=== PATIENT | female | born 2000 ===

== ENCOUNTER 2024-04-27 15:06 | Emergency (ER) | payer OTHER, SELFPAY ==
--- NOTE | ~2024-04-27 | XR_ITS ---
CLINICAL HISTORY: chest pain recent flu 2 view chest x-ray. Comparison: None Findings: Heart size normal. No acute fracture. Impression: Lungs are clear. This document has been electronically signed by: Jose Ochoa MD on 04/27/2024 17:15:24
[2024-04-27 15:25] VITALS: BP 126/83; BP 134/94; PULSE 113; PULSE 122; RESP 18; TEMP 36.8; O2SAT 99; BMI 43.2
--- NOTE | 2024-04-27 15:29 | ECG_ITS ---
Test Reason : CHEST PAIN Blood Pressure : */* mmHG Vent. Rate : 104 BPM Atrial Rate : 104 BPM P-R Int : 158 ms QRS Dur : 72 ms QT Int : 348 ms P-R-T Axes : 61 94 16 degrees QTcB Int : 457 ms Sinus tachycardia Rightward axis Nonspecific T wave abnormality Abnormal ECG No previous ECGs available Referred By: Donna Tracy Electronically Signed By: Issac Flowers
--- NOTE | 2024-04-27 15:29 | ED.GENADULT ---
HPI - General Adult General Chief complaint: Headache Stated complaint: chest pain,headache from [place] Time Seen by Provider: 04/27/24 15:27 Source: patient, EMS, RN notes reviewed and old records reviewed Mode of arrival: EMS Limitations: no limitations History of Present Illness ED Provider: Rossana HPI narrative: Patient is a 23-year-old female presenting to the emergency department with complaint of chest pain while coughing since this morning. Per staff report to EMS, patient was restrained for two hours this morning and medicated with 25mg of diphenhydramine, 1mg of risperidone, 2mg ativan, and 5mg of zyprexa and has been persistently tachycardic since. Patient also complains of headache. Tested positive for flu B around but was retested today and was negative. Denies fevers. Denies abdominal pain, nausea, vomiting or diarrhea. MD complaint: chest pain Onset (ago): hour(s) Location: head and chest Pain Consistency: intermittent (with coughing) Treatments prior to arrival: none Related Data Allergies Allergy/AdvReac Type Severity Reaction Status Date / Time Unable to Assess Allergy Verified 04/27/24 15:28 Review of Systems Review of Systems: As per HPI Yes all other systems are reviewed and are negative PMFSH Social History Social History Advance Directives: No Advance Directives Information Provided: No Do you have a plan to hurt others: No Plan Physical Exam ED Vital Signs: Vital Signs - 24 hr 04/27/24 15:25 04/27/24 18:31 Temperature 98.3 F 98.4 F Pulse Rate 122 H 101 H Respiratory Rate 18 18 Blood Pressure 134/94 H 142/93 H Pulse Oximetry 99 99 Oxygen Delivery Method Room Air Room Air BMI result Body Mass Index 43.2 Vital signs have been reviewed and appear to be correct. Blood pressure normal. Heart rate tachycardic. Respiratory rate normal. Temperature normal. Oxygen saturation normal. Medications Administered Discontinued Medications Generic Name Dose Route Start Last Admin Trade Name Freq PRN Reason Stop Dose Admin Sodium Chloride 1,000 mls @ 999 mls/hr 04/27/24 15:45 04/27/24 15:47 Ns IV 04/27/24 16:45 999 mls/hr .Q1H1M SHARMAINE Administration Medical Decision Making Medical Decision Making [facility] Narrative: Patient is a 23-year-old female presenting to the emergency department with complaint of chest pain while coughing since this morning. On exam patient is awake, A+Ox3, tachycardic, VS otherwise WNL, afebrile, normal neurological exam without focal deficits, physical exam findings as above. Given reported symptoms and physical exam findings, initial differential includes but is not limited to cardiac arrhythmia, dehydration, pneumonia, viral illness. Labs notable for mild leukocytosis, no significant electrolyte abnormalities, negative troponin. Viral serology negative. X-ray chest notable for no evidence of pneumonia. My interpretation is in agreement with the radiologist's interpretation. EKG shows sinus tachycardia, rate 104. Heart rate improved with IV fluids in the ED. Feel patient is stable for discharge back to [facility]. Return precautions discussed. Advised Tylenol or ibuprofen for costochondritis. Patient verbalized understanding of plan. Differential Diagnosis Differential Diagnoses: The differential diagnosis associated with the presentation includes As per [facility] Admission/Observation Consideration of admission/observation: Escalation of care including admission/observation considered Patient would have been admitted to the hospital had their work up had any findings where hospital admission was appropriate and their clinical presentation warranted hospital admission. Lab Data [facility] Lab Attestation statement: I reviewed the patient's lab results. As per [facility] 04/27/24 15:45 04/27/24 15:45 Labs: Lab Results 04/27/24 04/27/24 Range/Units 15:41 15:45 WBC 11.4 H (4.8-10.8) X10*3/uL RBC 4.96 (4.20-5.50) X10*6/uL Hgb 12.8 (12.0-16.0) g/dl Hct 38.9 (37.0-47.0) % MCV 78.4 L (80.0-98.0) fL MCH 25.8 L (27.0-33.0) pg MCHC 32.9 (31.0-35.0) g/dl RDW 14.2 (11.0-16.0) % Plt Count 400 (160-400) X10*3/uL MPV 9.1 L (9.4-12.3) fL Immature Gran % (Auto) 0.5 H (0.0-0.4) % Neut % (Auto) 71.8 (45-73) % Lymph % (Auto) 20.3 (20-40) % [place] % (Auto) 7.0 (2-11) % Eos % (Auto) 0.2 (0-4) % Baso % (Auto) 0.2 (0-2) % Lymph # (Auto) 2.3 (1.2-4.9) X10*3/uL [place] # (Auto) 0.8 (0.1-1.2) X10*3/uL Eos # (Auto) 0.0 (0.0-0.4) X10*3/uL Baso # (Auto) 0.0 (0.0-0.2) X10*3/uL Abs Immat Gran (auto) 0.06 H (0.00-0.03) X10*3/uL Absolute Neuts (auto) 8.2 (2.0-8.3) x10*3/uL Absolute Nucleated RBC 0.000 (0.0-0.012) X10*3/uL Nucleated RBC % (auto) 0.0 (0.0-0.2) /100WBC Sodium 140 (135-145) mmol/L Potassium 3.6 (3.3-5.1) mmol/L Chloride 106 (96-108) mmol/L Carbon Dioxide 21 L (22-29) mmol/L Anion Gap 17 (12-20) BUN 9 (9-16) mg/dL Creatinine 0.71 (0.5-1.4) mg/dL Estim Creat Clear Calc 133.5 Estimated GFR > 60 Random Glucose 98 (60-115) mg/dL Calcium 9.6 (8.4-10.2) mg/dL Magnesium 2.5 (1.6-2.6) mg/dL Total Bilirubin 0.9 (0.0-1.0) mg/dL AST 34 H (5-31) U/L ALT 52 H (0-31) U/L Alkaline Phosphatase 88 (39-117) U/L Total Creatine Kinase 123 (26-140) U/L Troponin I High Sens < 2.7 (<3.5-17.0) ng/L Total Protein 8.3 H (6.5-8.0) g/dL Albumin 4.4 (3.5-5.0) g/dL TSH 1.22 (0.32-4.0) uIU/mL Beta HCG, Quant < 2 mIU/mL Influenza Type A (PCR) NEGATIVE (Negative) Influenza Type B (PCR) NEGATIVE (Negative) RSV RNA Qual (PCR) NEGATIVE (Negative) SARS-CoV-2 RNA (RT-PCR) NEGATIVE (Negative) Independent Interpretation I performed an independent interpretation of an: EKG (sinus tachycardia, rate 104bpm, normal [place] interval and QTc) and Plain X-Ray Interpretation: No evidence of pneumonia on cxr. Radiology Impression Discussion of test interpretation with radiology: I have reviewed the radiologist's reading. Radiologist Impression: 2 view chest x-ray. Comparison: None Findings: Heart size normal. No acute fracture. Impression: Lungs are clear. External Record Review External record reviewed: Inpatient record, Office record and Outpatient record Discharge Plan Discharge Clinical Impression: Tachycardia, Acute costochondritis Patient Disposition: [facility] Transfer Details: Return to [facility] Instructions: Costochondritis (ED), Noncardiac Chest Pain (ED), Tachycardia (ED) Additional Instructions: You were evaluated in the emergency department today for chest pain with coughing and tachycardia (fast heart rate). Your evaluation did not reveal medical conditions requiring emergent treatment at this time. Your chest pain is likely due to costochondritis from coughing. We recommend that you take 400 mg ibuprofen or 650 mg Tylenol every 6 hours as needed for pain. You were tested for flu, COVID, and RSV which were all negative. Your chest x-ray did not show evidence of pneumonia. Your heart rate improved with IV fluids. Follow-up with your primary care provider as needed. Return to the emergency department if you develop worsening chest pain, shortness of breath or difficulty breathing, fevers or any other new or concerning symptoms. Print Language: Bhutanese
--- NOTE | 2024-04-27 15:30 | PC.NURSE ---
pt arrives to [facility] on a section 21 - placed in her chart
[2024-04-27] MEDS: 0.9 % Sodium Chloride 1,000 ML 999 ML IV (15:47)
[2024-04-27 15:49] LABS: MANUAL DIFF FLAG NO
[2024-04-27 15:56] LABS: Basophils Percent Auto 0.2 % (0-2); Eosinophils Percent Auto 0.2 % (0-4); Hematocrit 38.9 % (37.0-47.0); Hemoglobin 12.8 g/dl (12.0-16.0); Imm Gran Abs Auto 0.06 X10*3/uL (0.00-0.03); Imm Gran Pct Auto 0.5 % (0.0-0.4); Lymphocytes Absolute Auto 2.3 X10*3/uL (1.2-4.9); Lymphocytes Percent Auto 20.3 % (20-40); Mean Corpuscular HGB Conc 32.9 g/dl (31.0-35.0); Mean Corpuscular Hemoglobin 25.8 pg (27.0-33.0); Mean Corpuscular Volume 78.4 fL (80.0-98.0); Mean Platelet Volume 9.1 fL (9.4-12.3); Monocytes Absolute Auto 0.8 X10*3/uL (0.1-1.2); Neutrophils Absolute Auto 8.2 x10*3/uL (2.0-8.3); Neutrophils Percent Auto 71.8 % (45-73); Platelet Count 400 X10*3/uL (160-400); Red Blood Count 4.96 X10*6/uL (4.20-5.50); Red Cell Distribution Width 14.2 % (11.0-16.0); White Blood Count 11.4 X10*3/uL (4.8-10.8)
--- OUTSIDE RECORDS SUMMARY | 2024-04-27 16:14 | XMS_ITS | Continuity of Care Document ---
Author Organization [facility] Address [address] [place] [id number]- Care Team Providers Care Card Feeder Name Role Phone Óscar CORREA, Cathy Primary Care Physician Encounter [facility] [id number] Date(s): 03/15/24 - 04/14/[address] [address] Attending Physician: Nabeel Zhao Encounter Type: Triage Allergies, Adverse Reactions, Alerts Substance Criticality Severity Reaction Reaction Severity Status melatonin Active Other Food Allergy apple sauce Active Immunizations Given and Recorded Vaccine Date Status Refusal Reason influenza virus vaccine, inactivated 02/07/24 Give n influenza virus vaccine, inactivated 04/12/19 Give n influenza virus vaccine, inactivated 12/05/18 Ze rded influenza virus vaccine, inactivated 12/26/17 Give n influenza virus vaccine, inactivated 11/27/15 Ze rded influenza virus vaccine, inactivated 12/18/14 Ze rded influenza virus vaccine, inactivated 12/12/13 Give n influenza virus vaccine, inactivated 12/19/12 Give n SARS-CoV-2 mRNA ([id number]) vax 05/04/21 Recorded SARS-CoV-2 (COVID-19) mRNA BNT-162b2 vac 07/10/20 Recorded SARS-CoV-2 (COVID-19) mRNA BNT-162b2 vac 06/20/20 Recorded Meningococcal Conjugate Vaccine 04/12/19 Given Meningococcal Conjugate Vaccine 12/18/14 Recorded Human Papillomavirus Vaccine 05/09/18 Given Human Papillomavirus Vaccine 11/27/15 Recorded Human Papillomavirus Vaccine 09/21/15 Recorded Hepatitis A Pediatric Vaccine 09/21/15 Recorded Hepatitis A Pediatric Vaccine 11/27/06 Recorded tetanus/diphtheria/pertussis, acel(Tdap) 12/18/14 Recorded Varicella Virus Vaccine 11/05/07 Given Varicella Virus Vaccine 09/22/03 Recorded Measles/Mumps/Rubella Virus Vaccine 11/05/07 Given Measles/Mumps/Rubella Virus Vaccine 09/22/03 Recor ded Poliovirus Vaccine, Inactivated 11/05/07 Given Poliovirus Vaccine, Inactivated 11/05/07 Recorded Poliovirus Vaccine, Inactivated 01/07/04 Recorded Poliovirus Vaccine, Inactivated 01/13/03 Recorded Poliovirus Vaccine, Inactivated 02 Recorded Diphth/Pertussis,Acel/Tetanus (oldterm) 11/05/07 G iven Typhoid Vaccine, Inactivated 11/27/06 Given Hepatitis A Vaccine (oldterm) 11/27/06 Given Influenza Virus Vaccine (oldterm) 12/18/04 Recorde d Influenza Virus Vaccine (oldterm) 03/31/04 Recorde d pneumococcal 7-valent vaccine 03/31/04 Recorded pneumococcal 7-valent vaccine 04/11/03 Recorded pneumococcal 7-valent vaccine 01/13/03 Recorded pneumococcal 7-valent vaccine 02 Recorded Haemophilus B Conj Vaccine (oldterm) 01/07/04 Ze rded Haemophilus B Conj Vaccine (oldterm) 04/11/03 Ze rded Haemophilus B Conj Vaccine (oldterm) 01/13/03 Ze rded Haemophilus B Conj Vaccine (oldterm) 02 Ze rded diphtheria/tetanus/pertussis, acel(DTaP) 01/07/04 Recorded diphtheria/tetanus/pertussis, acel(DTaP) 04/11/03 Recorded diphtheria/tetanus/pertussis, acel(DTaP) 01/13/03 Recorded diphtheria/tetanus/pertussis, acel(DTaP) 02 Recorded Hepatitis B Vaccine (old term) 04/11/03 Recorded Hepatitis B Vaccine (old term) 02 Recorded Hepatitis B Vaccine (old term) 02 Recorded hepatitis B pediatric vaccine 02 Recorded Medications benztropine 1 mg oral tablet 1 mg, 1, tablet, By Mouth, 2 times a day, TAKE 1 TABLET BY MOUTH TWICE A DAY Start Date: 01/13/21 Status: Ordered Repeat number: 1 hydrOXYzine pamoate 25 mg oral capsule 1 capsule = 25 mg, By Mouth, Daily at bedtime, PRN as needed for anxiety, TAKE 1 CAPSULE BY MOUTH EVERY DAY AT BEDTIME NEEDED Start Date: 01/13/21 Status: Ordered Repeat number: 1 Nizoral 2% topical shampoo 1 application, Topically, Once, as directed on package labeling, # 120 mL, 3 Refills, Soft Stop, 04/03/24 8:55:00 PM EST, Shampoo, [id number], Partial fill upon patient request if the prescription is for a schedule II opioid drug., 1 application Topically Once,Instr:as directed on package labeling, 152.5, cm, 02/07/24 11:49:00 EST, Height Start Date: 04/03/24 Status: Ordered Quantity: 120.0 Unit: mL Repeat number: 4 Selsun Blue Itchy Dry Scalp 1% topical shampoo 1 applicator, Topically, Every other day, # 330 mL, 1 Refills, Maintenance, 04/09/24 10:37:00 AM EST, [id number], Partial fill upon patient request if the prescription is for aschedule II opioid drug., 1 applicator Topically Every other day, 152.5, cm, 02/07/24 11:49:00 EST,Height Start Date: 04/09/24 Status: Ordered Quantity: 330.0 Unit: mL Repeat number: 2 sertraline 100 mg oral tablet 1 tablet = 100 mg, By Mouth, Daily in AM, TAKE 1 TABLET BY MOUTH EVERY MORNING Start Date: 01/13/21 Status: Ordered Repeat number: 1 Splint See Instructions, # 1 each, Maintenance, DX carpal tunnel S , at bedtime, 12/27/22 12:15:00 PM EDT,Supply, 152.5, cm, 12/27/22 11:37:00 EDT, Height, 77, kg, 01/13/21 13:40:00 EST, Dry Weight Start Date: 12/27/22 Status: Ordered Quantity: 1.0 Unit: each Repeat number: 1 traZODone 50 mg oral tablet 25 mg, 0.5, tablet, By Mouth, Daily at bedtime, PRN, TAKE 1/2 TABLET BY MOUTH AT BEDTIME NEEDED FOR INSOMNIA, Insomnia Start Date: 01/13/21 Status: Ordered Repeat number: 1 Vitamin D3 2000 intl units oral capsule 1 capsule = 50 mcg, By Mouth, Daily, TAKE 1 CAPSULE BY MOUTH EVERY DAY, # 90 capsule, 1 Refills, Maintenance, 01/13/24 5:31:00 PM EST, Capsule, [id number], Partial fill upon patient request if the prescription is for a schedule II opioid drug., 152.5, cm, 11/27/23 13:16:00 EDT, Height Start Date: 01/13/24 Status: Ordered Quantity: 90.0 Unit: capsule Repeat number: 2 Problem List Condition Confirmation Course Effective Dates Status Health St atus Informant Anxiety and depression w/psychotic features (psych f/u with OPERATIONS ASSISTANT) Confirmed Active History of Chronic headache & Concussion Confirmed Active History of suicidality (recurrent psych admissions) Confirmed Active MSQ contact center manager, Lindsay Hernandez, RN [phone] Confirmed Active Obesity due to excess calories Confirmed Active Gender Identity-Pt prefers male or neutral pronouns Confirmed Active Severe obesity Confirmed Active Social History Social History Type Response Smoking Status Never smoker entered on: 03/21/14 Sex Female Sex Representation Female (finding) Hospital Consult note * Event Display: Inpatient Consult Note, Non- Authored Date: Laboratory * Event Display: Non Lab Results Authored Date: Note * Event Display: General Cardiac Risk Stratification Authored Date: Patient Care team information Care Team Personnel Name: Bertha Dougherty RN Position: [facility] RN Member Role: Primary Care Nurse Name: Marisol Martinez RN Position: [facility] RN Supv Member Role: Primary Care Nurse Name: Mary Alegria RN Position: S RN Member Role: Primary Care Nurse Name: Astrid Rodriguez RN Position: S RN Member Role: Primary Care Nurse Name: Cathy Cantrell MD Position: S Physician - Primary Care Member Role: PCP Address: [address] [place] [address] Telecom: Name: Janel Novak RN Position: S RN Member Role: Primary Care Nurse Care Team Related Persons Name: DAPHNE RAGSDALE Name: DAISHA LLOYD Name: MERRICK LLOYD Name: JAMSHID CRUZ Insurance Providers Guarantor name: DAPHNE MARTINEZMANNY Health Plan Information #: 1 Payer: [facility] Member Number: NA Policy Number: NA Group Number: NA
--- OUTSIDE RECORDS SUMMARY | 2024-04-27 16:14 | XMS_ITS | Continuity of Care Document ---
Author Organization [facility] Address [address] [place] [address]- Care Team Providers Care Spinner Operator Name Role Phone Óscar CORREA, Cathy Primary Care [id number] Date(s): 02/07/24 - 04/14/[address] [address] Attending Physician: Sukhwinder Larry MD Admitting Physician: Sukhwinder Larry MD Encounter Type: Pre-OutPatient One Time Allergies, Adverse Reactions, Alerts Substance Criticality Severity [...] vaccine, inactivated 12/19/12 Give n SARS-CoV-2 mRNA (nitljjv-cbeu-gzhfi) vax 05/04/21 Recorded SARS-CoV-2 (COVID-19) mRNA BNT-162b2 [...] Soft Stop, 04/03/24 8:55:00 PM EST, Shampoo, [id number], Partial fill upon patient request if the [...] 1 Refills, Maintenance, 04/09/24 10:37:00 AM EST, [id number], Partial fill upon patient request if the [...] Maintenance, 01/13/24 5:31:00 PM EST, Capsule, [id number], Partial fill upon patient request if the prescription is for a schedule II opioid drug., 152.5, cm, 11/27/23 13:16:00 EDT, Height Start Date: 01/13/24 Status: Ordered Quantity: 90.0 Unit: capsule Repeat number: 2 Problem List Condition Confirmation Course Effective Dates Status Health St atus Informant Anxiety and depression w/psychotic features (psych f/u with WALL ATTENDANT) Confirmed Active History of Chronic headache & Concussion Confirmed Active History of suicidality (recurrent psych admissions) Confirmed Active MSQ tax compliance manager, Lindsay Hernandez RN [phone] Confirmed Active Obesity due to excess calories Confirmed Active Gender Identity-Pt prefers male or neutral pronouns Confirmed Active Severe obesity Confirmed Active Social History Social History Type Response Smoking Status Never smoker entered on: 03/21/14 Sex Female Sex Representation Female (finding) Patient Care team information Care Team Personnel Name: Bertha Dougherty RN Position: [facility] RN Member Role: Primary Care Nurse Name: Marisol Martinez RN Position: [facility] RN Supv Member Role: Primary Care Nurse Name: Mary Alegria RN Position: [facility] RN Member Role: Primary Care Nurse Name: Astrid Rodriguez RN Position: [facility] RN Member Role: Primary Care Nurse Name: Cathy Cantrell MD Position: [facility] Physician - Primary Care Member Role: PCP Address: [address] [place] [address] Telecom: Name: Janel Novak RN Position: S RN Member Role: Primary Care Nurse Care Team Related Persons Name: DAPHNE RAGSDALE Name: DAISHA LLOYD Name: MERRICK LLOYD Name: JAMSHID CRUZ Insurance Providers Guarantor name: DAPHNE [facility] [facility] Plan Information #: 1 Payer: [employer] Member Number: [id number] Policy Number: NA Group Number: [id number] Health Plan Information #: 2 Payer: [facility] Member Number: [id number] Policy Number: NA Group Number: NA
--- OUTSIDE RECORDS SUMMARY | 2024-04-27 16:14 | XMS_ITS | Encounter Summary ---
Author Organization [facility] Address [address] [place] [address] Care Team Providers Care Patch Machine Operator Name Role Phone Cathy Cantrell MD Primary Care Provider Reason for Visit * Reason Comments Itching 3rd visit this week for flu and hives; hives since last night via ems from home Encounter Details Date Type Department Care Team (Late st Contact Info) Description 04/16/2024 5:27 PM EST - 04/18/2024 10:30 AM EST Emergency [facility] Emergency [address] [place] [id number] Darshana Charles, DO [address] [place] [address] Crow Adair MD [address] [place] [address] Dylan Sullivan MD [address] [place] [phone] Simon Edwards MD [address] [place] [address] Schizoaffective disorder, unspecified type (CMS/HCC) (Primary Dx) Discharge Disposition: Psychiatric Hospital Social History Tobacco Use Types Packs/Day Years Used Date Smoking Tobacco: Never Assessed Comments Unknown Sex and Gender Information Value Date Recorded Sex Assigned at Female 04/16/2024 5:45 PM EST Legal Sex Female 11:46 AM EST Gender Identity Female 04/16/2024 5:45 PM EST Sexual Orientation Straight 04/16/2024 5: 45 PM EST documented as of this encounter Last Filed Vital Signs Vital Sign Reading Time Taken Comments Blood Pressure 114/64 04/18/2024 8:20 AM EST Pulse 85 04/18/2024 8:20 AM EST Temperature 36.8 ??C (98.2 ??F) 04/18/2024 8:20 AM ES T Respiratory Rate 16 04/18/2024 8:20 AM EST Oxygen Saturation 97% 04/18/2024 8:20 AM EST Inhaled Oxygen Concentration - - Weight 74.8 kg (165 lb) 04/16/2024 2:54 PM EST Height 152.4 cm (5') 04/16/2024 2:54 PM EST Body Mass Index 32.22 04/16/2024 2:54 PM EST documented in this encounter Functional Status * Are you deaf or do you have serious difficulty hearing? Answer Date of Assessment Author No 04/17/2024 11:39 PM Srinivas Morales RN * Are you blind or do you have serious difficulty seeing, even when wearing glasses? Answer Date of Assessment Author No 04/17/2024 11:39 PM Srinivas Morales RN * Do you have serious difficulty walking or climbing stairs? Answer Date of Assessment Author No 04/17/2024 11:39 PM Srinivas Morales RN * Do you have serious difficulty dressing or bathing? Answer Date of Assessment Author No 04/17/2024 11:39 PM Srinivas Morales RN * Because of a physical, mental, or emotional condition, do you have serious difficulty doing errandsalone such as visiting the doctor? Answer Date of Assessment Author No 04/17/2024 11:39 PM Srinivas Morales RN documented as of this encounter Mental Status * Because of a physical, mental, or emotional condition, do you have serious difficulty concentrating, remembering, or making decisions? (5 years old or older) Answer Entry Date Author No 04/17/2024 11:39 PM Srinivas Morales RN documented in this encounter Medications at Time of Discharge albuterol HFA (PROAIR HFA ; PROVENTIL HFA ; VENTOLIN HFA) 90 mcg/actuation inhalerIndicatio ns:Influenza Inhale 2 puffs by mouth every 4 (four) hours if needed for wheezing or shortness of breath. 1 each 04/16/2024 5 diphenhydrAMINE (BENADRYL) 25 mg tablet Take 1 tablet (25 mg total) by mouth every 6 (six) hours for 5 days. 20 each 04/16/2024 guaiFENesin (ROBITUSSIN) 100 mg/5 mL liquid Take 5-10 mL (100-200 mg total) by mouth every 4 (four) hours if needed for cough. 60 mL 04/16/2024 5 doxycycline (VIBRAMYCIN) 100 mg capsule Take 1 capsule (100 mg total) by mouth 2 (two) times a day for 5 days. Take with at least 8 ounces (large glass) of water, do not lie down for 30 minutes after. Administer 2 hours before or after multivitamins, antacids, or other products containing polyvalent cations (i.e., calcium, iron, magnesium, selenium, zinc). 9 each 04/16/2024 5 famotidine (PEPCID) 20 mg tablet Take 2 tablets (40 mg total) by mouth 1 (one) time each day for 4 days. 8 each 04/16/2024 5 predniSONE (DELTASONE) 20 mg tablet Take 2 tablets (40 mg total) by mouth 1 (one) time each day for 4 days. 8 each 04/16/2024 5 documented as of this encounter Discharge Disposition Disposition Code Departure Means Destination [facility] documented in this encounter Progress Notes * Simon Edwards MD - 04/18/2024 8:04 AM EST ED Course as of 04/18/24 0804 MonApr 16, [id number] This a 23-year-old female presented hospital today for evaluation of hives. Patient was endorsing suicidal ideation and a rapid medical evaluation pod. Therefore patient was brought back to alcohol for further evaluation. Patient was given 50 p.o. of Benadryl. Patient was also given. Will planto give patient a dose of prednisone here. Will also give patient a dose of Claritin here. Crisis counselor will be placed in for patient [TC] 2108 Crisis team has evaluate patient. Recommend involuntary bed search at this time. Patient be signed out to oncoming provider pending bed search [TC] Wed Apr 17, 2024 0938 Received on signout. Patient is awaiting placement. She continues to have hives. Will add moreprednisone. She was also diagnosed with influenza, and will treat with acetaminophen for symptomatic relief [LD] Elizabeth Apr 18, 2024 0802 I, Dr. Davey Edwards, have received signout for this patient from Dr Charles at 0700 hrs. The patient is currently pending transfer to [facility] 04/18/2024. [MG] ED Course User Index [LD] Dylan Sullivan MD [MG] Simon Edwards MD [TC] Darshana Hernandezny Melvin, DO Clinical Impressions as of 04/18/24 0804 Schizoaffective disorder, unspecified type (CMS/HCC) Send to Specialty Department 1. Schizoaffective disorder, unspecified type (CMS/HCC) Procedures Fatma A Dotafa * Penelope Lucas RN - 04/17/2024 6:24 PM EST Pt shared with this RN that she feels overwhelmed due to not knowing if her dog is OK and she may be evicted from her home. Pt requested to obtain phone number of her mother's hospital social worker from her phone - this Rn allowed and supervised. Pt wants Rika added to Emergency Contact list. Lung sounds clear, pt noted to be coughing sporadically. * Penelope Lucas RN - 04/17/2024 5:55 PM EST Med rec completed via [facility] pharmacy on [address] - provider notified. Pt reports medications that were picked up at this pharmacy on 04/16 were never taken - had an allergic reaction to antibiotics given in ED (azythromycin and Augmentin) - these antibiotics were added to pt allergy list. * Penelope Lucas RN - 04/17/2024 4:41 PM EST Gaby called and informed this RN they will accept pt for tomorrow (04/18) at 0900. * Penelope Lucas RN - 04/17/2024 4:17 PM EST Attempted to draw labs on this pt x2 without success. * Penelope Lucas RN - 04/17/2024 2:49 PM EST Pt c/o increased burning / itchiness around shoulder blades and upper back. A large rash noted across pt's back and down both arms. Pt's eyes noted to be swollen and reports a itchy throat. Provider notified and benadryl ordered. * Mega Stubbs RN - 04/17/2024 5:21 AM EST Attempted to call [facility] on [address] again to complete med rec but pharmacist stated that he is unable to do med rec as their system is updating and won't be done until around 7am. * Mega Stubbs RN - 04/17/2024 2:02 AM EST Attempted to call [facility] to complete med rec but no one answered. * Mega Stubbs RN - 04/16/2024 11:55 PM EST Security and PO at watch. * Mega Stubbs RN - 04/16/2024 11:54 PM EST Assumed care of this pt. Pt assuming position of comfort watching TV in no acute distress. Pt did ask for more benadryl as she is experiencing increase in itching and states my throat is getting tighter . Assessed airway and airway is patent. Respirations are even and unlabored. Provider notified refer to MAR. * Pablo Thomas RN - 04/16/2024 8:39 PM EST Crisis at bedside Pablo Thomas RN 04/16/242038 * Darshana Charles DO - 04/16/2024 7:36 PM EST ED Course as of 04/16/242109Apr 16, 20241947 This a 23-year-old female presented hospital today for evaluation of hives. Patient was endorsing suicidal ideation and a rapid medical evaluation pod. Therefore patient was brought back to alcohol for further evaluation. Patient was given 50 p.o. of Benadryl. Patient was also given. Will planto give patient a dose of prednisone here. Will also give patient a dose of Claritin here. Crisis counselor will be placed in for patient [TC] 2108 Crisis team has evaluate patient. Recommend involuntary bed search at this time. Patient be signed out to oncoming provider pending bed search [TC] ED Course User Index [TC] Darshana Charles DO Clinical Impressions as of 04/16/242109 Suicidal ideation Data Unavailable 1. Suicidal ideation Procedures Fatma A Bouhafa * Rayray Nicolas RN - 04/16/2024 6:30 PM EST While changing patient into proper safety attire to be in [facility], patient began to complain of dizziness, blurred vision, and stated that my heart is stopping . Patient lowered onto toilet and vitals were taken. BP 101/84, oxygen saturation of 100%, pulse of 80 BPM. ELIUD Cowart made aware. This RN helped patient perform deep breathing exercises for anxiety and patient began to feel better. Patient now denies dizziness, chest pain or difficulty breathing. * Rayray Nicolas RN - 04/16/2024 6:00 PM EST Patient endorsing SI statements and states she has no plan but has had some ideas to kill herself like overdosing on pills, jumping in front of traffic, and hanging herself. hooking machine operator and ELIUD Cowart made aware. Plan to bring patient over to [facility] to get seen by crisis team. * Saskia Ireland RN - 04/16/2024 2:57 PM EST Patient calls someone on the phone who asking for the hospital number to text to explain her anxiety and other issues patient is alert and oriented, refusing to answer questions, wont even tell this RN her birthday and just says I can't, I can't refusing to lift her sleeves to look at rash. Refusing to get off cell phone, unable to visualize rash or triage appropriately due to lack to participation from patient. I offered another nurse and patient states no ?? * Saskai Ireland RN - 04/16/2024 2:50 PM EST Recent pneumonia diagnosis, placed on antibiotic and back today for rash. Was seen for rash yesterday. Patient states rash is getting worse Patient with head in her lap, wont take her bonilla off, wont raise her head to look at this RN. Patient will not answer my questions and is on her cell phone. She states talk to my worker I told Leesa wanted to speak to her and she needed to raise her head and answer questions and patient will not. She will not let me assess the rash either. ? * Bela Vera RN - 04/16/2024 2:16 PM EST Seen here for flu earlier this week, given abx (azithromycin) and then developed hives/itching; came here for hives and stopped abx but continues to have worsening of hives so here again via ems Did not cooperate for ems to answer questions or to assess hives * ELIUD Reyez - 04/16/2024 1:58 PM EST Emergency Medicine Note Patient Name: Mick White Initial Evaluation: 04/16/2024 : 2000 Patient's PCP: Cathy Cantrell MD Emergency Physician: ELIUD Reyez History of Present Illness Chief Complaint: Chief Complaint Patient presents with ??? Itching 3rd visit this week for flu and hives; hives since last night via ems from home HPI: This is a 23-year-old female who comes in today with complaints of itchy hives from an antibiotic she was prescribed yesterday for pneumonia. She also has influenza. She came back to the ED yesterdayafter she started having an itchy rash. Her antibiotics were changed and she was also given prednisone and Benadryl. She comes back in today because she is still having the hives. Denies difficulty breathing or swallowing. ROS: GENERAL: No fever, no chills, no acute distress OPHTHALMOLOGY: No vision changes, no redness, or discharge ENT: No sore throat , no nosebleed CARDIOVASCULAR: No chest pain, no peripheral edema RESPIRATORY: No dyspnea, no sputum production, and no cough MUSCULOSKELETAL: No myalgias, no back pain, and no neck pain. GI: No abdominal pain, no nausea, no vomiting, no diarrhea. No black stool, bright red blood per rectum, or constipation. GENITOURINARY: No dysuria, no urgency, no frequency NEUROLOGY: No paresthesias, no weakness, No headache PSYCHIATRIC: No depression, no suicidality, or intent of self-harm DERMATOLOGY: +rash +pruritus IMMUNOLOGY: No immunocompromise HEMATOLOGY: No bleeding, no bruising Previous History No past medical history on file. No past surgical history on file. No family history on file. is allergic to apple, food allergy formula, ibuprofen, and melatonin. Current Facility-Administered Medications on File Prior to Encounter Medication Dose Route Frequency Provider Last Rate Last Admin ??? [COMPLETED] albuterol 2.5 mg /3 mL (0.083 %) nebulizer solution 2.5 mg 2.5 mg nebulization OnceErica Herve, PA 2.5 mg at 04/16/24 0252 ??? [COMPLETED] diphenhydrAMINE (BENADRYL) capsule 25 mg 25 mg oral Once Dianna Herve, PA 25 mg at 04/16/24 0511 ??? [COMPLETED] doxycycline (MONODOX) capsule 100 mg 100 mg oral Once Dianna Herve, PA 100 mg at 04/16/24 0253 ??? [COMPLETED] famotidine (PEPCID) tablet 40 mg 40 mg oral Once Dianna Herve, PA 40 mg at 04/16/24 0023 ??? [COMPLETED] guaiFENesin (ROBITUSSIN) 100 mg/5 mL liquid 100 mg 100 mg oral Once Dianna Herve, PA100 mg at 04/16/24 0408 ??? [COMPLETED] ipratropium-albuteroL (DUONEB) 0.5-2.5 mg/3 mL nebulizer solution 3 mL 3 mL nebulization Once Dianna Herve, PA 3 mL at 04/16/24 0253 ??? [COMPLETED] predniSONE (DELTASONE) tablet 60 mg 60 mg oral Once Dianna Herve, PA 60 mg at 04/16/24 0023 ??? [DISCONTINUED] famotidine (PF) (PEPCID) injection 40 mg 40 mg intravenous Once Dianna Edgar PA ??? [DISCONTINUED] methylPREDNISolone sodium succ (SOLU-Medrol) injection 125 mg 125 mg intravenousOnce ELIUD Magallanes Current Outpatient Medications on File Prior to Encounter Medication Sig Dispense Refill ??? albuterol HFA (PROAIR HFA ; PROVENTIL HFA ; VENTOLIN HFA) 90 mcg/actuation inhaler Inhale 2 puffs by mouth every 4 (four) hours if needed for wheezing or shortness of breath. 1 each 0 ??? diphenhydrAMINE (BENADRYL) 25 mg tablet Take 1 tablet (25 mg total) by mouth every 6 (six) hours for 5 days. 20 each 0 ??? doxycycline (VIBRAMYCIN) 100 mg capsule Take 1 capsule (100 mg total) by mouth 2 (two) times a day for 5 days. Take with at least 8 ounces (large glass) of water, do not lie down for 30 minutes after. Administer 2 hours before or after multivitamins, antacids, or other products containing polyvalent cations (i.e., calcium, iron, magnesium, selenium, zinc). 9 each 0 ??? famotidine (PEPCID) 20 mg tablet Take 2 tablets (40 mg total) by mouth 1 (one) time each day for 4 days. 8 each 0 ??? guaiFENesin (ROBITUSSIN) 100 mg/5 mL liquid Take 5-10 mL (100-200 mg total) by mouth every 4 (four) hours if needed for cough. 60 mL 0 ??? predniSONE (DELTASONE) 20 mg tablet Take 2 tablets (40 mg total) by mouth 1 (one) time each dayfor 4 days. 8 each 0 ??? [DISCONTINUED] amoxicillin-clavulanate (AUGMENTIN) 875-125 mg per tablet Take 1 tablet by mouthevery 12 (twelve) hours for 7 days. 14 tablet 0 ??? [DISCONTINUED] azithromycin (ZITHROMAX) 250 mg tablet Take 1 tablet (250 mg total) by mouth 1 (one) time each day for 4 days. 4 each 0 Physical Exam ED Triage Vitals [04/16/24 1454] Temp Heart Rate Resp BP 36.3 ??C (97.4 ??F) 101 20 136/88 SpO2 Temp Source Heart Rate Source Patient Position 97 % Oral -- -- BP Location FiO2 (%) -- -- General: Well-appearing, well nourished, in no acute distress HEENT: PERRL, EOMI, external ears and nose appear unremarkable, airway is patent Neck: Supple, full range of motion Chest: Clear to auscultation; no evidence of respiratory distress Circulatory: RRR, extremities well perfused Abdomen: Non-distended, Non-Tender Extremities: Normal ROM, No edema Skin: Warm and dry. Urticarial rash to the B forearms. Slight edema to the B upper eye lids. Neuro: Alert and oriented, no focal deficits Results Labs Reviewed - No data to display Abnormal Labs Reviewed - No data to display No orders to display I have discussed the incidental/abnormal imaging and/or lab abnormalities with the patient and haveinstructed them the need for further evaluation and workup with their primary care doctor. I have provided the patient with a paper copy of the abnormality. The laboratory results, imaging results and other diagnostic exam results were reviewed in the EMR. EKG Interpretation Critical Care Time None Medical Decision Making Medications diphenhydrAMINE (BENADRYL) capsule 50 mg (has no administration in time range) ED Course as of 04/23/24 1034 Tue Apr 16, 20241947 This a 23-year-old female presented hospital today for evaluation of hives. Patient was endorsing suicidal ideation and a rapid medical evaluation pod. Therefore [facility]. Patient was given 50 p.o. of Benadryl. Patient was also given. Will planto give patient a dose of prednisone here. Will also give patient a dose of Claritin here. Crisis counselor will be placed in for patient [TC] 2108 Crisis team has evaluate patient. Recommend involuntary bed search at this time. Patient be signed out to oncoming provider pending bed search [TC] Wed Apr 17, 2024 0938 Received on signout. Patient is awaiting placement. She continues to have hives. Will add moreprednisone. She was also diagnosed with influenza, and will treat with acetaminophen for symptomatic relief [LD] Elizabeth Apr 18, 2024 0802 I, Dr. Davey Edwards, have received signout for this patient from Dr Charles at 0700 hrs. The patient is currently pending transfer to [facility] today 04/18/2024. [MG] ED Course User Index [LD] Dylan Sullivan MD [MG] Simon Edwards MD [TC] Darshana Charles, DO Clinical Impressions as of 04/23/24 1034 Schizoaffective disorder, unspecified type (CMS/HCC) Differential to include allergic reaction to antibiotic, anaphylaxis, anxiety, pneumonia, influenza I explained to the patient that she is already currently taking all of the appropriate medications for this reaction. Her vital signs are stable, there is no work of breathing her lungs are clear. However, she stated that she was feeling slightly suicidal. She reports that she has had a lot of ongoing stress at home recently. She will be moved to [facility] for [facility] evaluation. Procedures Procedures Diagnosis No diagnosis found. Disposition Data Unavailable ED Prescriptions None Physician Attestation ELIUD Reyez 04/16/24 1754 ELIUD Reyez 04/23/24 1034 Cosigned by Darshana Charles DO at 04/23/2024 2:12 PM EST documented in this encounter Consult Notes * Dixon Loo - 04/17/2024 4:53 PM EST The patient is accepted by Dr. Ary Moses at [facility] for tomorrow, at 11AM. * Dixon Loo - 04/16/2024 9:28 PM ESTAssociated Order(s): IP CONSULT TO ATHLETIC DIRECTOR Images from the original note were not included. Behavioral Health Services - Crisis Assessment Important times Time of arrival: 1:58PM--04/16/2024 Time of referral: 7:48PM--04/16/2024 Time of readiness: 7:50PM--04/16/2024 Time assessment started: 8:30PM--04/16/2024 Time of disposition: 9:30PM--04/16/2024 Location: ED, Room- Consulted case with: BINDU Oneal Reason for Consultation / Presenting Problem: Mick White is being seen today for a consultive service at the request of Darshana Charles DO to assess risk and identify appropriate level of care. Mick is being seen today due to feeling slightly suicidal. With few ideas such as overdosing on pills, jumping in front of traffic, and hanging herself. She stated that she has lots of ongoing stress at home. She initially presents with itchy hives from an antibiotic she was prescribed with her visit here yesterday for pneumonia. The patient stated that she is being suicidal about a week but more today feeling overwhelmed by it. She shared that the cause is due to her mother company. She will be [facility], and she does not give her space, she is always on top of her head; asking questions and want to know every breath she takes. The patient shared that two years ago in November has suicidal ideation due to loneliness and went to [facility]. She reported that about a years and half ago she overdosed on cough medication and passed out and was brought to hospital and has a history of cutting during her school time but she has not cut herself for more than three years. History of Present Illness: Mick is a 23 y.o. female with Chief Complaint Patient presents with Itching 3rd visit this week for flu and hives; hives since last night via ems from home Social/Educational History: Guardian - if Yes, provide contact information: self Status: no State Agency Involvement: [facility], providing her with outreach services. Osman's Order: No Marital Status: Single Alternative Placement Details: N/A Living Situation for patient: The patient is currently lives with her mom and two pets; one dog anirudh cat. Household Members/Age: Unknown Friendships/Family/Social Peer Support/Relationships: None reported, beside [facility] outreach services. Highest level of education: GED/ High School Comments (Include Learning Needs): N/A Occupation: Unemployed Employment/Extracurricular Activities/Hobbies: Draw and listen to music. Limitations of Daily Activities: Not reported Strengths/Supports: The patient able to advocate for herself. Collaterals, contact information, and engagement level: Therapist: BOB Psychiatrist: Diandra ROJAS PCP: [facility] Provider Family: Mom Other: N/A Mental Status Speech: WNL Eye Contact: WNL Motor Activity: WNL Mood: Tired, Sad and stressed out. Affect: Appropriate Sleep: Poor Appetite: Poor Memory: WNL Attention / Concentration: WNL Behavior: Cooperative Appearance: approriate; with the hospital attire. Hallucinations: None Delusions: None Thought Content: WNL SI: Presence HI: Denied Thought Process: WNL Orientation Impairment: None Insight: WNL Judgment: WNL Impulse Control: WNL Substance Use History (Including family history): None was reported about the patient, Dad uses tobacco Utox Results: Negative Substance Use Treatment History: None reported. Mental Health Treatment History: Outpatient Mental Health Treatment: None reported Previous or Current Psychological Diagnosis: Schizoaffective disorder. Prior Psychiatric Hospitalizations/Residential Treatment Facilities: The patient reported being fewtimes in hospitals at [facility] and [facility] due to feeling suicidal, overdosed and cutting. Other Comments Regarding Mental Health Treatment History: The patient has a significant history of admission and treatment for the last few years. Mental Health Concerns in Family: N/A Trauma History: The patient shared that she was bullied during her school time from many of her classmates. Medications: Scheduled Meds: loratadine, 10 mg, oral, Daily Continuous Infusions: PRN Meds: N/A Risk Assessment: Self-Harm: Past and Current Suicidal Behavior: Current Homicidal Behavior: None Physical Assault: None Physical Aggression: None Property Damage: None Verbal Aggression: None Family history of suicide: None currently reported. Protective Factors: The patient has DMH, CHD and BHN, safe housing and mom's support. Risk Factors: History of SI, cutting, and overdose. Suicide Risk: Based on patient's history and current presentation, their level of risk for intentional lethal harm is considered Moderate to high. Interventions: Conducted Safety assessment, Motivational interviewing, risk assessment, active listening, empathetic listening, brief counseling, psychoeducation, support, and safety planning. Response to interventions: Patient was engaging to the best of his ability DSM-5TR Diagnosis: F25.9 Schizoaffective disorder, unspecified type (CMS/HCC) Plan: 23 years old white female presents initially with hives allergy from antibiotic that she is taking and suicidal with few plans. The patient is currently not safe to go back to the community. Based onthe above information, it is my clinical opinion that Mick would benefit from an inpatient psychiatric admission for safety and containment, mood stabilization, medication evaluation, diagnostic clarification, and participation in a therapeutic milieu. Upon discharge, she would benefit from a referral to outpatient providers for continued medication management, and to gain insight and psychoeducation into her mental health symptoms and develop adaptive coping skills for her depression and suicidal ideation Recommendations were discussed with requesting provider. It was a pleasure to assist Mick White here at [facility]. This report is written and finalized by: KIMBERLEY Underwood Behavioral Health Specialist [facility] (Tel): [phone] / : [phone] documented in this encounter Plan of Treatment Pending Results Name Type Priority Associated Diagnoses Date /Time POC , urine manually resulted Point of Care Testing STAT 04/18/2024 6:19 AM EST Scheduled Orders Name Type Priority Associated Diagnoses Orde r Schedule POC , urine manually resulted Point of Care Testing STAT Once for 1 Occurrences starting 04/18/2024 until 04/18/2024 documented as of this encounter Procedures Procedure Name Priority Date/Time Associated Diagnosis Comments DRUG ABUSE SCREEN 8A PANEL, URINE STAT 04/17/2024 1:18 PM EST BUPRENORPHINE SCREEN, URINE STAT 04/17/2024 1:18 PM EST METHADONE SCREEN, URINE STAT 04/17/2024 1:18 PM EST PHENCYCLIDINE, URINE STAT 04/17/2024 1:18 PM EST documented in this encounter Results * Methadone, urine (04/17/2024 1:18 PM EST) Methadone Screen, Urine Negative Negative LAB CHEMISTRY METHOD 04/17/2024 1:52 PM EST [facility] Comment: Assay cutoff 300 ng/mL Semi-quantitative assay for screening purposes only. Unconfirmed screening result should not be used for non-medical purposes. *ALTERNATE METHOD CONFIRMATION DONE UPON REQUEST ONLY* Urine Urine specimen obtained by clean catch procedure / Unknown Non-blood Collection / Unknown 04/17/2024 1:18 PM EST 04/17/2024 1:28 PM EST us Crow Adair MD LAB URINE ORDERABLES Final Resu lt Performing Organization Address [facility] Co de Phone Number [facility] [address] [place] [address], [place] [phone] * Phencyclidine, urine (04/17/2024 1:18 PM EST) PCP Scrn, Ur Negative Negative LAB CHEMISTRY METHOD 04/17/2024 1:52 PM EST [facility] Comment: Assay cutoff 25 ng/mL Semi-quantitative assay for screening purposes only. Unconfirmed screening result should not be used for non-medical purposes. *ALTERNATE METHOD CONFIRMATION DONE UPON REQUEST ONLY* Urine Urine specimen obtained by clean catch procedure / Unknown Non-blood Collection / Unknown 04/17/2024 1:18 PM EST 04/17/2024 1:28 PM EST us Crow Adair MD LAB URINE ORDERABLES Final Resu lt Performing Organization Address [facility] Co de Phone Number [facility] [address] [place] [address], [place] [phone] * Buprenorphine screen, urine (04/17/2024 1:18 PM EST) Buprenorphine Screen Urine Negative Negative LAB CHEMISTRY METHOD 04/17/2024 1:52 PM EST [facility] Urine Urine specimen obtained by clean catch procedure / Unknown Non-blood Collection / Unknown 04/17/2024 1:18 PM EST 04/17/2024 1:28 PM EST Narrative [facility] - 04/17/2024 1:52 PM EST Assay cutoff 5 ng/mL Semi-quantitative assay for screening purposes only. Unconfirmed screening result should not be used for non-medical purposes. *ALTERNATE METHOD CONFIRMATION DONE UPON REQUEST ONLY* us Crow Adair MD LAB URINE ORDERABLES Final Resu lt [facility] [address] [place] [address], * Drug abuse screen 8a panel, urine (04/17/2024 1:18 PM EST) Amphetamine Screen, Ur Negative Negative LAB CHEMISTRY METHOD 04/17/2024 1:52 PM EST [facility] Comment:Certain OTC medicati ons containing ephedrine, phenylephrine, pseudoephedrine and phenylpropanolamine can cause false positive results. Barbiturate Screen, Ur Negative Negative LAB CHEMISTRY METHOD 04/17/2024 1:52 PM EST [facility] Benzodiazepine Screen, Ur Negative Negative LAB CHEMISTRY METHOD 04/17/2024 1:52 PM EST [facility] Cocaine Screen, Ur Negative Negative LAB CHEMISTRY METHOD 04/17/2024 1:52 PM EST [facility] Opiate Screen, Ur Negative Negative LAB CHEMISTRY METHOD 04/17/2024 1:52 PM EST [facility] Cannabinoid (THC) Screen, Ur Negative Negative LAB CHEMISTRY METHOD 04/17/2024 1:52 PM EST [facility] Comment:Specimens from patie nts taking pantoprazole sodium (Protonix) have been shown to produce false positive results. Oxycodone Screen, Ur Negative Negative LAB CHEMISTRY METHOD 04/17/2024 1:52 PM EST [facility] Fentanyl, Ur Negative Negative LAB CHEMISTRY METHOD 04/17/2024 1:52 PM EST [facility] Urine Urine specimen obtained by clean catch procedure / Unknown Non-blood Collection / Unknown 04/17/2024 1:18 PM EST 04/17/2024 1:28 PM EST [facility] - 04/17/2024 1:52 PM EST Assay cutoffs: Amphetamines ? 1000 ng/mL Barbiturates ?200 ng/mL Benzodiazepines ?? 200 ng/mL Cocaine ? 300 ng/mL Fentanyl ?1 ng/mL Opiates ? 300 ng/mL Oxycodone ? 100 ng/mL THC ?50 ng/mL Semi-quantitative assay for screening purposes only. Unconfirmed screening result should not be used for non-medical purposes. *ALTERNATE METHOD CONFIRMATION DONE UPON REQUEST ONLY* us Crow Adair MD LAB URINE ORDERABLES Final Resu lt [facility] ([facility]) [facility] [address] [place] [address], documented in this encounter Visit Diagnoses Diagnosis Schizoaffective disorder, unspecified type (CMS/HCC)- Primary documented in this encounter Administered Medications Inactive Administered Medications - up to 3 most recent administrations Medication Order MAR Action Action Date Dose Rate Site acetaminophen (TYLENOL) tablet 650 mg 650 mg, oral, Once, On Mon04/17/24 at 0755, For 1 dose Given 04/17/2024 9:11 AM EST 650 mg diphenhydrAMINE (BENADRYL) capsule 50 mg 50 mg, oral, Once, On Mon04/16/24 at 1747, For 1 dose Given 04/16/2024 6:01 PM EST 50 mg diphenhydrAMINE (BENADRYL) capsule 50 mg 50 mg, oral, Once, On Mon04/17/24 at 0010, For 1 dose Given 04/17/2024 12:26 AM EST 50 mg diphenhydrAMINE (BENADRYL) capsule 50 mg 50 mg, oral, Once, On Mon04/17/24 at 1417, For 1 dose Given 04/17/2024 2:56 PM EST 50 mg hydrOXYzine pamoate (VISTARIL) capsule 50 mg 50 mg, oral, Once, On Mon04/17/24 at 2013, For 1 dose Given 04/17/2024 8:31 PM EST 50 mg loratadine (CLARITIN) tablet 10 mg 10 mg, oral, Daily, First dose on Mon04/16/24 at 1937 Given 04/16/2024 8:26 PM EST 10 mg loratadine (CLARITIN) tablet 10 mg 10 mg, oral, Once, On Mon04/18/24 at 0651, For 1 dose Given 04/18/2024 7:03 AM EST 10 mg loratadine (CLARITIN) tablet 20 mg 20 mg, oral, Once, On Mon04/17/24 at 0634, For 1 dose Given 04/17/2024 6:50 AM EST 20 mg predniSONE (DELTASONE) tablet 20 mg 20 mg, oral, Once, On Mon04/16/24 at 1937, For 1 dose Given 04/16/2024 8:26 PM EST 20 mg predniSONE (DELTASONE) tablet 40 mg 40 mg, oral, Daily, First dose on Mon04/17/24 at 0755 Given 04/17/2024 9:11 AM EST 40 mg predniSONE (DELTASONE) tablet 60 mg 60 mg, oral, Once, On Mon04/17/24 at 2013, For 1 dose Given 04/17/2024 8:31 PM EST 60 mg documented in this encounter Discontinued Medications Medication Sig Discontinue Reason Start Date End Da te Banophen 25 mg capsule Take 1 capsule (25 mg total) by mouth every 6 (six) hours if needed for itching (For 5days). Duplicate order 04/16/2024 04/17/2024 documented as of this encounter Historical Medications * This list may reflect changes made after this encounter. Banophen 25 mg capsule Take 1 capsule (25 mg total) by mouth every 6 (six) hours if needed for itching (For 5days). 04/16/2024 04/17/2024 added in this encounter Active and Recently Administered Medications Times are shown in EST. Scheduled Medication Order 04/16/2024 04/17/2024 04/18/2024 acetaminophen (TYLENOL) tablet 650 mg (COMPLETED) 650 mg, oral, Once, On Mon04/17/24 at 0755, For 1 dose 0911 (Given - Provider: Jazmin Cerrato, ROBBY) diphenhydrAMINE (BENADRYL) capsule 50 mg (COMPLETED) 50 mg, oral, Once, On Mon04/16/24 at 1747, For 1 dose 1801 (Given - Provider: Rayray Nicolas, ROBBY) diphenhydrAMINE (BENADRYL) capsule 50 mg (COMPLETED) 50 mg, oral, Once, On Mon04/17/24 at 0010, For 1 dose 0026 (Given - Provider: Mega Stubbs RN) diphenhydrAMINE (BENADRYL) capsule 50 mg (COMPLETED) 50 mg, oral, Once, On Mon04/17/24 at 1417, For 1 dose 1456 (Given - Provider: Penelope Lucas RN) hydrOXYzine pamoate (VISTARIL) capsule 50 mg (COMPLETED) 50 mg, oral, Once, On Mon04/17/24 at 2012, For 1 dose 2030 (Given - Provider: Srinivas Hill RN) loratadine (CLARITIN) tablet 10 mg (CANCELED) 10 mg, oral, Daily, First dose on Mon04/16/24 at 1937 202 (Given - Provider: Pablo Thomas RN) 0904 (Not Given - Provider: Jazmin Cerrato RN - Reason: Other - Comment: 20mg given 6:30am) loratadine (CLARITIN) tablet 10 mg (COMPLETED) 10 mg, oral, Once, On Mon04/18/24 at 0651, For 1 dose 0703 (Given - Provider: Srinivas Hlil RN) loratadine (CLARITIN) tablet 20 mg (COMPLETED) 20 mg, oral, Once, On Mon04/17/24 at 0634, For 1 dose 0650 (Given - Provider: Mega Stubbs RN) predniSONE (DELTASONE) tablet 20 mg (COMPLETED) 20 mg, oral, Once, On Mon04/16/24 at 1937, For 1 dose 2025 (Given - Provider: Pablo Thomas RN) predniSONE (DELTASONE) tablet 40 mg (CANCELED) 40 mg, oral, Daily, First dose on Mon04/17/24 at 0755 0911 (Given - Provider: Jazmin Cerrato RN) predniSONE (DELTASONE) tablet 60 mg (COMPLETED) 60 mg, oral, Once, On Mon04/17/24 at 2012, For 1 dose 2030 (Given - Provider: Srinivas Hill RN) documented in this encounter Orders Medications Ordered That Marcelino ht Not Have Been Administered Count Last Ordered Date First Ordered Date loratadine (CLARITIN) tablet 10 mg 1 2024 diphenhydrAMINE (BENADRYL) capsule 25 mg 1 04/16/2024 Consult Count Last Ordered Date First Orde red Date IP CONSULT TO ATHLETIC DIRECTOR 1 04/16/2024 documented in this encounter Additional Health Concerns Infection Onset Date Last Indicated Resolved Time Influenza Comment:Infection isolation completed 04/15/2024 04/15/2024 04/24/2024 1:[address] documented as of this encounter Care Teams Patch Machine Operator Relationship Specialty Start Date End Date Cathy Cantrell MD 11 [facility] PCP - General Internal Medicine 04/15/24 documented as of this encounter
--- OUTSIDE RECORDS SUMMARY | 2024-04-27 16:14 | XMS_ITS | Encounter Summary ---
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 Consultation / Presenting Problem: Mick White is being seen today for a consultive service at the request of Hasmukh Brooks MD to assess risk and identify appropriate level of care. Mick is a 23-year-old female, history of psychosis, presents for crisis evaluation. [facility] She states she is continuing to have auditory hallucinations, she is feeling vaguely suicidal. She called crisis for evaluation, they heard her shaking a pillbottle during the phone call, and they became concerned. EMS was called and patient was brought to the ED for evaluation. She does admit to taking 4 tabs of Robitussin and made some vague suicidal statements. She is not having any medical complaints at this time. The nurse reported she is very anxious and was hiding in the bathroom and would not come out. She reproted she was saying she is suicidal and has been shaking. Mick intimally would not talk, however, then began to talk. Mick reported my name is really Brayan . She stated there are 2 people take are behind me listening to what I say . She stated I dis not sleep last night cause of those two people . She stated I have to stop talking because they are listening and they don't want me to say anymore . Mick was seen by [facility] co-response on 04/23/24 and she was sent to the ER for containment. They reported she had taken 4 Robitussin tablets. Unclear as to why she took the pills. History of Present Illness: Mick is a 23 y.o. female with Chief Complaint Patient presents with Psychiatric Evaluation Pt coming from home d/c from [facility] this am. Per EMS pt called [facility] crisis line where pt was faintly talking then a pill bottle was heard shaking on the call and then pt hung up. Per EMS pt has referral placed for crisis and did admit to EMS that she took 4 tabs of robitussin as well as made SI statements as well auditory hallucinations but not feeling it now . Pt has hx of attempted overdose. Social/Educational History: Guardian - if Yes, provide contact information: self Temperance Status: N/A State Agency Involvement: None reported Osman's Order: N/A Marital Status: Single Alternative Placement Details: N/A Living Situation for patient: Relative/lives with her mother. Household Members/Age: Unknown. Friendships/Family/Social Peer Support/Relationships: Mick has providers who are involved Highest level of education: GED Comments (Include Learning Needs): None reported Occupation: Unemployed Employment/Extracurricular Activities/Hobbies: Unemployed Limitations of Daily Activities: None reported Strengths/Supports: Mick has providers who are advocating for her needs. Collaterals, contact information, and engagement level: Therapist: None reported Psychiatrist: BOB/Diandra Sigala [phone] PCP: Unknown Family: Father Yogesh White [phone] [facility] Recovery Auditor of Green team Doris Fernandez [phone] (please contact so they can co-ordinate after discharge). warp worker Charisma Matamoros [phone] Mental Status Speech: WNL Eye Contact: Avoidant Motor Activity: WNL Mood: Anxious and Depressed Affect: Flat Sleep: Poor Appetite: Poor Memory: Moderate Impairment Attention / Concentration: Mild Impairment Behavior: Cooperative, Guarded, and Paranoid Appearance: Hallucinations: Auditory and Visual Delusions: Paranoid Thought Content: Preoccupied SI: Denied/however, reported initially she was suicidal. HI: Denied Thought Process: Tangential Orientation Impairment: Place and Person Insight: Poor Judgment: Poor Impulse Control: Poor Substance Use History (Including family history): Mick denies any history of alcohol or drug use. Utox Results: BAL negative TOX negative Substance Use Treatment History: Mick denies any history of substance abuse treatment. Mental Health Treatment History: Outpatient Mental Health Treatment: [facility] providers. Previous or Current Psychological Diagnosis: Schizoaffective D/O Depressed Type Prior Psychiatric Hospitalizations/Residential Treatment Facilities: Mick is known to [facility]. Mick reported she overdosed in 2022 as a suicide attempt. She has a history of psychiatric admissions in the past. Her most recent was to [facility]. Other Comments Regarding Mental Health Treatment History: None reported. Mental Health Concerns in Family: Mother has mental illness. Trauma History: Prior records stated she has a history of being bullied. Medications: Scheduled Meds: sertraline, 50 mg, oral, Daily Continuous Infusions: PRN Meds: PRN medications: albuterol Risk Assessment: Self-Harm: None Suicidal Behavior: None reported/however did take 4 Robitussin intent is unclear. Homicidal Behavior: None Physical Assault: None Physical Aggression: None Property Damage: None Verbal Aggression: None Family history of suicide: Unknown Protective Factors: Has providers working with her Stable housing Risk Factors: Paranoid, anxiety, auditory and visual hallucinations, Unclear why she took 4 Robitussin pills. Suicide Risk: Based on patient's history and current presentation, their level of risk for intentional lethal harm is considered Moderate Interventions: Used brief crisis intervention Response to interventions: Mick was responsive. DSM-5TR Diagnosis: F25.1 Schizoaffective D/O, Depressive Type Plan: It is unclear as to why Mick took the pills, she is at moderate risk for harm to herself. She is at low risk for harm to others. Due to the level of decompensation, not sleeping or eating, Hiding inthe bathroom and experiencing auditory and visual hallucinations, she is at risk for unintentional harm to herself and others. She would benefit from inpatient level of care for safety, stabilizationand medication evaluation. She is on a section 12 involuntary. Recommendations were discussed with requesting provider. It was a pleasure to assist Mick White here at [facility]. This report is written and finalized by: Ngozi Hills MS Behavioral Health Specialist [facility] (Tel): [phone] / : [phone] documented in this encounter Plan of Treatment Pending Results Name Type Priority Associated Diagnoses Date /Time POC , urine manually resulted [as available by site] Point of Care Testing STAT 04/23/2024 11:58 PM EST Scheduled Orders Name Type Priority Associated Diagnoses Orde r Schedule POC , urine manually resulted [as available by site] Point of Care Testing STAT STAT for 1 Occurrences starting 04/23/2024 until 04/23/2024 documented as of this encounter Procedures Procedure Name Priority Date/Time Associated Diagnosis Comments RAPID [id number] SCREENING, MOLECULAR STAT 04/24/2024 8:58 AM EST DRUG ABUSE SCREEN 8A PANEL, URINE STAT 04/23/2024 11:49 PM EST BUPRENORPHINE SCREEN, URINE STAT 04/23/2024 11:49 PM EST METHADONE SCREEN, URINE STAT 04/23/2024 11:49 PM EST CBC WITH AUTO DIFFERENTIAL STAT 04/23/2024 11:49 PM EST PHENCYCLIDINE, URINE STAT 04/23/2024 11:49 PM EST CBC AND DIFFERENTIAL STAT 04/23/2024 11:49 PM EST ETHANOL STAT 04/23/2024 11:49 PM EST ACETAMINOPHEN LEVEL STAT 04/23/2024 1 1:49 PM EST SALICYLATE LEVEL STAT 04/23/2024 11:4 9 PM EST COMPREHENSIVE METABOLIC PANEL STAT 04/23/2024 11:49 PM EST documented in this encounter Results * Rapid [id number], molecular (04/24/2024 8:58 AM EST) [facility] SARS-COV-2 Screen Not Detected Not Detected METHOD [id number] 04/24/2024 10:15 AM EST [facility] Swab Both anterior nares / Unknown Non-blood Collection / Unknown 04/24/2024 8:58 AM EST 04/24/2024 9:47 AM EST Hasmukh Brooks MD LAB MICROBIOLOGY - GENERAL DELANO LARSEN Final Result Performing Organization Address City/[facility]/ZIP Co de Phone Number [facility] [address] [place] [address], [place] [phone] * Phencyclidine, urine (04/23/2024 11:49 PM EST) [facility] PCP Scrn, Ur Negative Negative LAB CHEMISTRY METHOD 04/24/2024 12:46 AM EST [facility] Comment: Assay cutoff 25 ng/mL Semi-quantitative assay for screening purposes only. Unconfirmed screening result should not be used for non-medical purposes. *ALTERNATE METHOD CONFIRMATION DONE UPON REQUEST ONLY* Urine Urine specimen obtained by clean catch procedure / Unknown Non-blood Collection / Unknown 04/23/2024 11:49 PM EST 04/24/2024 12:13 AM EST Jb Wilkerson MD LAB URINE ORDERABLES Audra l Result Performing Organization Address [facility]/ZIP Co de Phone Number [facility] [address] [place] [address], [place] [phone] * Methadone, urine (04/23/2024 11:49 PM EST) [facility] Methadone Screen, Urine Negative Negative LAB CHEMISTRY METHOD 04/24/2024 12:58 AM EST [facility] Comment: Assay cutoff 300 ng/mL Semi-quantitative assay for screening purposes only. Unconfirmed screening result should not be used for non-medical purposes. *ALTERNATE METHOD CONFIRMATION DONE UPON REQUEST ONLY* Urine Urine specimen obtained by clean catch procedure / Unknown Non-blood Collection / Unknown 04/23/2024 11:49 PM EST 04/24/2024 12:13 AM EST Jb Wilkerson MD LAB URINE ORDERABLES Audra l Result Performing Organization Address [facility] Co de Phone Number [facility] [address] [place] [address], * Buprenorphine screen, urine (04/23/2024 11:49 PM EST) [facility] Buprenorphine Screen Urine Negative Negative LAB CHEMISTRY METHOD 04/24/2024 12:46 AM EST [facility] Urine Urine specimen obtained by clean catch procedure / Unknown Non-blood Collection / Unknown 04/23/2024 11:49 PM EST 04/24/2024 12:13 AM EST Narrative [facility] - 04/24/2024 12:46 AM EST Assay cutoff 5 ng/mL Semi-quantitative assay for screening purposes only. Unconfirmed screening result should not be used for non-medical purposes. *ALTERNATE METHOD CONFIRMATION DONE UPON REQUEST ONLY* Jb Wilkerson MD LAB URINE ORDERABLES Audra l Result Performing Organization Address City/[facility]/ZIP Co de Phone Number [facility] [address] [place] [address], * Drug abuse screen 8a panel, urine (04/23/2024 11:49 PM EST) [facility] Amphetamine Screen, Ur Negative Negative LAB CHEMISTRY METHOD 04/24/2024 12:58 AM [facility] Comment:Certain OTC medicati ons containing ephedrine, phenylephrine, pseudoephedrine and phenylpropanolamine can cause false positive results. Barbiturate Screen, Ur Negative Negative LAB CHEMISTRY METHOD 04/24/2024 12:58 AM [facility] Benzodiazepine Screen, Ur Negative Negative LAB CHEMISTRY METHOD 04/24/2024 12:58 AM [facility] Cocaine Screen, Ur Negative Negative LAB CHEMISTRY METHOD 04/24/2024 12:58 AM [facility] Opiate Screen, Ur Negative Negative LAB CHEMISTRY METHOD 04/24/2024 12:58 AM [facility] Cannabinoid (THC) Screen, Ur Negative Negative LAB CHEMISTRY METHOD 04/24/2024 12:58 AM [facility] Comment:Specimens from patie nts taking pantoprazole sodium (Protonix) have been shown to produce false positive results. Oxycodone Screen, Ur Negative Negative LAB CHEMISTRY METHOD 04/24/2024 12:58 AM [facility] Fentanyl, Ur Negative Negative LAB CHEMISTRY METHOD 04/24/2024 12:58 AM [facility] Urine Urine specimen obtained by clean catch procedure / Unknown Non-blood Collection / Unknown 04/23/2024 11:49 PM EST 04/24/2024 12:13 AM [facility] - 04/24/2024 12:58 AM EST Assay cutoffs: Amphetamines ? 1000 ng/mL Barbiturates ?200 ng/mL Benzodiazepines ?? 200 ng/mL Cocaine ? 300 ng/mL Fentanyl ?1 ng/mL Opiates ? 300 ng/mL Oxycodone ? 100 ng/mL THC ?50 ng/mL Semi-quantitative assay for screening purposes only. Unconfirmed screening result should not be used for non-medical purposes. *ALTERNATE METHOD CONFIRMATION DONE UPON REQUEST ONLY* Jb Wilkerson MD LAB URINE ORDERABLES Audra don Result [facility] [address] [place] [address], * (ABNORMAL) CBC auto differential (04/23/2024 11:49 PM EST) [facility] WBC 10.7 4.8 - 10.8 K/mcL LAB HEMETOLOGY METHOD 04/24/2024 12:20 AM [facility] RBC 4.60 3.80 - 4.80 M/mcL LAB HEMETOLOGY METHOD 04/24/2024 12:20 AM [facility] Hemoglobin 11.7 11.5 - 16.0 g/dL LAB HEMETOLOGY METHOD 04/24/2024 12:20 AM [facility] Hematocrit 37.3 35.0 - 47.0 % LAB HEMETOLOGY METHOD 04/24/2024 12:20 AM [facility] MCV 81.8 79.0 - 98.0 FL LAB HEMETOLOGY METHOD 04/24/2024 12:20 AM [facility] MCH 25.7(L) 27.0 - 32.0 pcg LAB HEMETOLOGY METHOD 04/24/2024 12:20 AM [facility] MCHC 31.4(L) 32.0 - 37.0 g/dL LAB HEMETOLOGY METHOD 04/24/2024 12:20 AM [facility] RDW 13.9 11.0 - 15.0 % LAB HEMETOLOGY METHOD 04/24/2024 12:20 AM [facility] Platelets 500(H) 130 - 400 K/mcL LAB HEMETOLOGY METHOD 04/24/2024 12:20 AM [facility] MPV 8.8 7.0 - 11.0 FL LAB HEMETOLOGY METHOD 04/24/2024 12:20 AM [facility] NRBC 0.0 <1.0 % LAB HEMETOLOGY METHOD 04/24/2024 12:20 AM [facility] NRBC Absolute 0.00 <0.10 K/mcL LAB HEMETOLOGY METHOD 04/24/2024 12:20 AM [facility] Neutrophils Relative 63.7 % LAB HEMETOLOGY METHOD 04/24/2024 12:20 AM [facility] Lymphocytes Relative 25.4 % LAB HEMETOLOGY METHOD 04/24/2024 12:20 AM [facility] Monocytes Relative 9.5 % LAB HEMETOLOGY METHOD 04/24/2024 12:20 AM [facility] Eosinophils Relative 0.0 % LAB HEMETOLOGY METHOD 04/24/2024 12:20 AM [facility] Basophils Relative 0.1 % LAB HEMETOLOGY METHOD 04/24/2024 12:20 AM [facility] Immature Granulocytes Relative 1.3 % LAB HEMETOLOGY METHOD 04/24/2024 12:20 AM [facility] Neutrophils Absolute 6.80 1.50 - 7.00 K/mcL LAB HEMETOLOGY METHOD 04/24/2024 12:20 AM [facility] Lymphocytes Absolute 2.72 1.00 - 5.00 K/mcL LAB HEMETOLOGY METHOD 04/24/2024 12:20 AM [facility] Monocytes Absolute 1.02(H) 0.20 - 1.00 K/mcL LAB HEMETOLOGY METHOD 04/24/2024 12:20 AM [facility] Eosinophils Absolute 0.00 0.00 - 0.50 K/mcL LAB HEMETOLOGY METHOD 04/24/2024 12:20 AM EST [facility] Basophils Absolute 0.01 0.00 - 0.20 K/[facility] LAB HEMETOLOGY METHOD 04/24/2024 12:20 AM EST [facility] Immature Granulocytes Absolute 0.14(H) 0.00 - 0.03 K/[facility] LAB HEMETOLOGY METHOD 04/24/2024 12:20 AM EST [facility] Blood Venous blood specimen / Unknown Venipuncture / Unknown 04/23/2024 11:49 PM EST 04/24/2024 12:13 AM EST Jb Wilkerson MD LAB BLOOD ORDERABLES Audra l Result Performing Organization Address City/[facility]/ZIP Co de Phone Number [facility] [address] [place] [address], [place] [phone] * Ethanol level (Alcohol level) (04/23/2024 11:49 PM EST) Ethanol Level <3 0 - 10 mg/dL LAB CHEMISTRY METHOD 04/24/2024 12:38 AM EST [facility] Blood Venous blood specimen / Unknown Venipuncture / Unknown 04/23/2024 11:49 PM EST 04/24/2024 12:13 AM EST Jb Wilkerson MD LAB BLOOD ORDERABLES Audra l Result [facility] [address] [place] [address], [place] [phone] * (ABNORMAL) Salicylate level (04/23/2024 11:49 PM EST) Salicylate Level <1.7(L) 2.0 - 29.0 mg/dL LAB CHEMISTRY METHOD 04/24/2024 12:38 AM EST [facility] Blood Venous blood specimen / Unknown Venipuncture / Unknown 04/23/2024 11:49 PM EST 04/24/2024 12:13 AM EST Jb Wilkerson MD LAB BLOOD ORDERABLES Audra l Result Performing Organization Address [facility]/ZIP Co de Phone Number [facility] [address] [place] [address], [place] [phone] * (ABNORMAL) Acetaminophen level (04/23/2024 11:49 PM EST) Acetaminophen Level <2.0(L) 10.0 - 30.0 mcg/mL LAB CHEMISTRY METHOD 04/24/2024 12:40 AM [facility] Blood Venous blood specimen / Unknown Venipuncture / Unknown 04/23/2024 11:49 PM EST 04/24/2024 12:13 AM EST Jb Wilkerson MD LAB BLOOD ORDERABLES Audra l Result Performing Organization Address [facility]/ZIP Co de Phone Number [facility] [address] [place] [address], [place] [phone] * Comprehensive metabolic panel (CMP) (04/23/2024 11:49 PM EST) Sodium 135 133 - 145 mmol/L LAB CHEMISTRY METHOD 04/24/2024 12:38 AM [facility] Potassium 4.3 3.5 - 5.5 mmol/L LAB CHEMISTRY METHOD 04/24/2024 12:38 AM [facility] Chloride 106 96 - 110 mmol/L LAB CHEMISTRY METHOD 04/24/2024 12:38 AM [facility] CO2 25 21 - 32 mmol/L LAB CHEMISTRY METHOD 04/24/2024 12:38 AM [facility] Anion Gap 4 3 - 11 LAB CHEMISTRY METHOD 04/24/2024 12:38 AM [facility] Glucose 84 70 - 100 mg/dL LAB CHEMISTRY METHOD 04/24/2024 12:38 AM [facility] BUN 15 5 - 25 mg/dL LAB CHEMISTRY METHOD 04/24/2024 12:38 AM [facility] Creatinine 0.73 0.50 - 1.10 mg/dL LAB CHEMISTRY METHOD 04/24/2024 12:38 AM [facility] eGFR 120 >=60 mL/min/1. 73m2 LAB CHEMISTRY METHOD 04/24/2024 12:38 AM [facility] Comment:Calculation based on the??Chronic Kidney Disease Epidemiology Collaboration (CKD-EPI) equation refit??without adjustment for race. BUN/Creatinine Ratio 20.5 LAB CHEMISTRY METHOD 04/24/2024 12:38 AM [facility] Calcium 9.1 8.5 - 10.5 mg/dL LAB CHEMISTRY METHOD 04/24/2024 12:38 AM [facility] AST (SGOT) 19 10 - 42 unit/L LAB CHEMISTRY METHOD 04/24/2024 12:38 AM [facility] ALT (SGPT) 35 10 - 60 unit/L LAB CHEMISTRY METHOD 04/24/2024 12:38 AM [facility] Alkaline Phosphatase 86 42 - 121 unit/L LAB CHEMISTRY METHOD 04/24/2024 12:38 AM [facility] Total Protein 7.4 6.0 - 8.0 g/dL LAB CHEMISTRY METHOD 04/24/2024 12:38 AM [facility] Albumin 4.0 3.2 - 5.0 g/dL LAB CHEMISTRY METHOD 04/24/2024 12:38 AM [facility] Total Bilirubin 0.4 0.0 - 1.4 mg/dL LAB CHEMISTRY METHOD 04/24/2024 12:38 AM [facility] Blood Venous blood specimen / Unknown Venipuncture / Unknown 04/23/2024 11:49 PM EST 04/24/2024 12:13 AM EST us Jb Wilkerson MD LAB BLOOD ORDERABLES Audra don Result [facility] [address] [place] [address], [place] [phone] documented in this encounter Visit Diagnoses Diagnosis Schizoaffective disorder, depressive type (CMS/HCC)- Primary Schizoaffective disorder, unspecified condition documented in this encounter Administered Medications Inactive Administered Medications - up to 3 most recent administrations Medication Order MAR Action Action Date Dose Rate Site LORazepam (ATIVAN) tablet 1 mg 1 mg, oral, Once, On Mon04/24/24 at 0504, For 1 dose Given 04/24/2024 5:20 AM EST 1 mg LORazepam (ATIVAN) tablet 2 mg 2 mg, oral, Once, On Mon04/25/24 at 0757, For 1 dose Given 04/25/2024 8:45 AM EST 2 mg OLANZapine (ZyPREXA) tablet 5 mg 5 mg, oral, 2 times daily PRN, agitation, Starting on Mon04/24/24 at 1825 Given 04/25/2024 3:11 AM EST 5 mg Given 04/24/2024 6:41 PM EST 5 mg sertraline (ZOLOFT) tablet 50 mg 50 mg, oral, Daily, First dose on Mon04/24/24 at 0900 Given 04/25/2024 8:45 AM EST 50 mg Given 04/24/2024 9:00 AM EST 50 mg documented in this encounter Historical Medications * This list may reflect changes made after this encounter. hydrOXYzine pamoate (VISTARIL) 50 mg capsule Take 1 capsule (50 mg total) by mouth 4 (four) times a day if needed for itching. sertraline (ZOLOFT) 50 mg tablet Take 1 tablet (50 mg total) by mouth 1 (one) time each day. added in this encounter Active and Recently Administered Medications Times are shown in EST. Scheduled Medication Order 04/23/2024 04/24/2024 04/25/2024 LORazepam (ATIVAN) tablet 1 mg (COMPLETED) 1 mg, oral, Once, On Mon04/24/24 at 0504, For 1 dose 0520 (Given - Provider: Abby Suero, ROBBY) LORazepam (ATIVAN) tablet 2 mg (COMPLETED) 2 mg, oral, Once, On Elizabeth 04/25/24 at 0757, For 1 dose 0845 (Given - Provid er: Justine Martínez RN) sertraline (ZOLOFT) tablet 50 mg 50 mg, oral, Daily, First dose on Mon04/24/24 at 0900 0900 (Given - Provider: Andree Wade) 0845 (Given - Provider: Justine Martínez RN) PRN Medication Order 04/23/2024 04/24/2024 04/25/2024 albuterol 2.5 mg /3 mL (0.083 %) nebulizer solution 2.5 mg 2.5 mg, nebulization, Every 8 hours PRN, wheezing, Starting on Mon04/24/24 at 0818 OLANZapine (ZyPREXA) tablet 5 mg 5 mg, oral, 2 times daily PRN, agitation, Starting on Mon04/24/24 at 1825 1841 (Given - Provider: Bertha Perkins, ROBBY) 0311 (Given - Provider: Natasha Reyes RN) documented in this encounter Orders Medications Ordered That Marcelino ht Not Have Been Administered Count Last Ordered Date First Ordered Date albuterol 2.5 mg /3 mL (0.08 3 %) nebulizer solution 2.5 mg 1 04/24/2024 famotidine (PEPCID) tablet 40 mg 1 04/24/19 hydrOXYzine pamoate (VISTARI L) capsule 50 mg 1 04/24/2024 Consult Count Last Ordered Date First Orde red Date IP CONSULT TO TRANSIT DEPARTMENT CLERK 1 04/24/2024 documented in this encounter Additional Health Concerns Infection Onset Date Last Indicated Resolved Time Influenza Comment:Infection isolation completed 04/15/2024 04/15/2024 04/24/2024 1:[address] documented as of this encounter Care Teams Logistics Clerk Relationship Specialty Start Date End Date Cathy Cantrell MD [address] [place] PCP - General Internal Medicine 04/15/24 documented as of this encounter
--- OUTSIDE RECORDS SUMMARY | 2024-04-27 16:14 | XMS_ITS | Encounter Summary ---
Author Organization [facility] Address [address] [place] [address] Care Team Providers Care Dynamometer Tuner Name Role Phone Cathy Cantrell MD Primary Care Provider [phone] Encounter Details Date Type Department Care Team (Late st Contact Info) Description 04/22/2024 Community Care Management [place] [facility] [address] [place] [address] Kisha Blanchard Social History Tobacco Use Types Packs/Day Years [...] care for your loved ones. For example, children's choir director or elderly care for an older adult? [...] PM EST documented as of this encounter Functional Status * Are you [...] Srinivas Morales RN documented in this encounter Progress Notes * Kisha Blanchard - 04/22/2024 11:06 AM EST Outreach Pt on: 04/15/2024 Reason for Encounter : SDOH Screening Outcome : Screening Complete Follow up Plan: Pt is working ongoing with a CM from [facility] . No f/up needed from [facility]. documented in this encounter Plan of Treatment Not on file documented as of this encounter Visit Diagnoses Not on filedocumented in this encounter Additional Health Concerns Infection Onset Date Last Indicated Resolved Time Influenza Comment:Infection isolation completed 04/15/2024 04/15/2024 04/24/2024 1:[address] documented as of this encounter Care Teams Dynamometer Tuner Relationship Specialty Start Date End Date Cathy Cantrell MD [address] [place] PCP - General Internal Medicine 04/15/24 documented as of this encounter
--- OUTSIDE RECORDS SUMMARY | 2024-04-27 16:14 | XMS_ITS ---
Author Organization [facility] Address [address] [place] [address] Phone Care Team Providers Care Domestic Violence Counselor Name Role Phone Cathy Cantrell MD Primary Care Provider [phone] Community Health Worker Program Status:Closed (Closed) Start date:04/15/2024 End date:04/22/2024 Close reason:Not interested at this time Overview Community Health Worker Program Continued Care and Services Coordination
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
--- OUTSIDE RECORDS SUMMARY | 2024-04-27 16:14 | XMS_ITS | Encounter Summary ---
Author Organization [facility] Address [address] [place] [address] Care Team Providers Care Hand Trucker Name Role Phone Cathy Cantrell MD Primary Care Provider [phone] Reason for Visit * Reason Comments URI Fever Encounter Details Date Type Department Care Team (Late st Contact Info) Description 04/15/2024 9:35 AM EST - 04/15/2024 3:54 PM EST Emergency [facility] Emergency [address] [place] [address] CharlesCesarheath Quintanilla Dickson, DO [address] [place] [address] Pneumonia of right upper lobe due to infectious organism (Primary Dx); Influenza A Discharge Disposition: Home or Self Care Social History Tobacco Use Types Packs/Day Years [...] Sign Reading Time Taken Comments Blood Pressure 101/59 04/15/2024 2:47 PM EST Pulse 106 04/15/2024 2:47 PM EST Temperature 36.9 ??C (98.4 ??F) 04/15/2024 2:47 PM ES T Respiratory Rate 19 04/15/2024 12:46 PM EST Oxygen Saturation 96% 04/15/2024 2:47 PM EST Inhaled Oxygen Concentration - - Weight 88.5 kg (195 lb) 04/15/2024 10:51 AM EST Height 152.4 cm (5') 04/15/2024 10:51 AM EST Body Mass Index 38.08 04/15/2024 10:51 AM EST documented in this encounter Medications at Time [...] for 4 days. 8 each 04/16/2024 5 amoxicillin-clav ulanate (AUGMENTIN) 875-125 mg per tablet Take 1 tablet by mouth every 12 (twelve) hours for 7 days. 14 tablet 04/15/2024 5 azithromycin (ZITHROMAX) 250 mg tablet Take 1 tablet (250 mg total) by mouth 1 (one) time each day for 4 days. 4 each 04/15/2024 documented as of this encounter Ordered Prescriptions Prescription Sig Dispense Quantity Refills Last Filled Start Date End Date azithromycin (ZITHROMAX) 250 mg tablet Take 1 tablet (250 mg total) by mouth 1 (one) time each day for 4 days. 4 each 04/15/2024 04/16/2024 amoxicillin-clavul anate (AUGMENTIN) 875-125 mg per tablet Take 1 tablet by mouth every 12 (twelve) hours for 7 days. 14 tablet 04/15/2024 04/16/2024 documented in this encounter Discharge Disposition Disposition Code Departure Means Destination Comment s Home or Self Care documented in this encounter Progress Notes * Abigail Hunter RN - 04/15/2024 8:41 AM EST Pt c/o sore throat, fever, cough with green/brown phelgm, weakness, dizziness since Monday morning. Denies sick contacts * Sharon Agarwal RN - 04/15/2024 7:51 AM EST PT BIBA FROM HOME, C/O FEVER, COUGH, SORETHROAT, FEVER SINCE MONDAY, WORSE TODAY, COUGH INITIALLYHAD GREEN PHLEGM, NOW BROWN. DENIES ANY CHEST PAIN FOR EMS. Sharon Agarwal RN 04/15/24 0752 * Darshana Charles DO - 04/15/2024 7:46 AM EST Emergency Medicine Note Patient Name: Mick White Initial Evaluation: 04/15/2024 : 2000 Patient's PCP: Cathy Cantrell MD Emergency Physician: Darshana Charles DO History of Present Illness Chief Complaint: Chief Complaint Patient presents with URI Fever HPI: This is a 23-year-old female presented hospital today for 3 days of sore throat, nasal congestion and cough. Patient is complain of some fever as well. Patient states that she does not feel welloverall therefore she presented to ER for further evaluation. ROS: I have performed a ROS with the pertinent positives and negatives documented in the history ofpresent illness. Previous History History reviewed. No pertinent past medical history. History reviewed. No pertinent surgical history. No family history on file. is allergic to food allergy formula. No current facility-administered medications on file prior to encounter. No current outpatient medications on file prior to encounter. Physical Exam ED Triage Vitals [04/15/24 0839] Temp Heart Rate Resp BP 38 ??C (100.4 ??F) (!) 130 22 98/54 SpO2 Temp Source Heart Rate Source Patient Position 96 % Oral -- -- BP Location FiO2 (%) -- -- General: Pleasant, no distress, interacting appropriately Head: Normacephalic, atraumatic ENT: oral mucosa moist, neck supple, no tracheal deviation Cardiovascular: Tachycardia rate, regular rhythm, no murmurs, rubbing, gallops Respiratory: CTAB, no wheeze, rales, rhonchi Gastrointestinal: Soft, non distended, non tender, non guarding Extremities: No limb pain or swelling, no calf tenderness Neurological: Awake and alert, no facial droop noted Skin: Warm and dry Psychiatric: Appropriate mood and thoughts Results Labs Reviewed [id number], RSV, FLU A AND B QUALITATIVE RT-PCR, INTERNAL LAB - Abnormal Result Value Influenza A PCR Detected (*) Influenza B PCR Not Detected RSV PCR Not Detected SARS COV-2 Not Detected Narrative: Disclaimer: Testing was performed using the miiCard GeneXpert Xpress SARS-CoV-2 _Flu_RSV PLUS PCR assay. The manner in which this information is used to guide patient care is the responsibility of the healthcare provider. Results should be correlated with the clinical history, epidemiological data,and other data available to the clinician evaluating the patient. Negative results do not preclude infection. This test has been authorized by the FDA under an Emergency Use Authorization (EUA). Thistest is only authorized for the duration of time the declaration that circumstances exist justifying the authorization of the emergency use of in vitro diagnostic tests for detection of SARS-CoV-2 virus and/or diagnosis of COVID-19 infection under section 564 (b) (1) of the Act, 21 U.S.C 360bbb-3 (b) (1), unless the authorization is terminated or revoked sooner. Reference Range: Not Detected Fact sheet for Healthcare providers can be found at https://www.fda.gov/media/652163/download. Fact sheet for Healthcare patients can be found at https://www.fda.gov/media/966175/download. CBC WITH AUTO DIFFERENTIAL - Abnormal WBC 9.3 RBC 4.30 Hemoglobin 11.2 (*) Hematocrit 34.6 (*) MCV 79.9 MCH 25.9 (*) MCHC 32.4 RDW 13.8 Platelets 243 MPV 9.3 NRBC 0.0 NRBC Absolute 0.00 Neutrophils Relative 79.8 Lymphocytes Relative 9.5 Monocytes Relative 10.1 Eosinophils Relative 0.0 Basophils Relative 0.2 Immature Granulocytes Relative 0.4 Neutrophils Absolute 7.43 (*) Lymphocytes Absolute 0.89 (*) Monocytes Absolute 0.94 Eosinophils Absolute 0.00 Basophils Absolute 0.02 Immature Granulocytes Absolute 0.04 (*) LACTATE - Normal Lactate 1.0 CBC AND DIFFERENTIAL Narrative: The following orders were created for panel order CBC and differential. Procedure Abnormality Status --------- ------ CBC auto differential[[id number]] Abnormal Final result Please view results for these tests on the individual orders. BASIC METABOLIC PANEL Abnormal Labs Reviewed [id number], RSV, FLU A AND B QUALITATIVE RT-PCR, INTERNAL LAB - Abnormal; Notable for the following components: Result Value Influenza A PCR Detected (*) All other components within normal limits Narrative: Disclaimer: Testing was performed using the miiCard GeneXpert Xpress SARS-CoV-2 _Flu_RSV PLUS PCR assay. The manner in which this information is used to guide patient care is the responsibility of the healthcare provider. Results should be correlated with the clinical history, epidemiological data,and other data available to the clinician evaluating the patient. Negative results do not preclude infection. This test has been authorized by the FDA under an Emergency Use Authorization (EUA). Thistest is only authorized for the duration of time the declaration that circumstances exist justifying the authorization of the emergency use of in vitro diagnostic tests for detection of SARS-CoV-2 virus and/or diagnosis of COVID-19 infection under section 564 (b) (1) of the Act, 21 U.S.C 360bbb-3 (b) (1), unless the authorization is terminated or revoked sooner. Reference Range: Not Detected Fact sheet for Healthcare providers can be found at https://www.fda.gov/media/636878/download. Fact sheet for Healthcare patients can be found at https://www.fda.gov/media/745234/download. CBC WITH AUTO DIFFERENTIAL - Abnormal; Notable for the following components: Hemoglobin 11.2 (*) Hematocrit 34.6 (*) MCH 25.9 (*) Neutrophils Absolute 7.43 (*) Lymphocytes Absolute 0.89 (*) Immature Granulocytes Absolute 0.04 (*) All other components within normal limits XR Chest 2 Views Final Result Right upper lobe infiltrate with associated linear atelectasis. Hypoinflated lung fragoso with bibasilar atelectasis. -------- FINAL REPORT -------- Dictated By: Andreea Arteaga Dictated Date: 04/15/2024 09:23 ET Assigned Physician: Andreea Arteaga Reviewed and Electronically Signed By: Andreea Arteaga Signed Date: 04/15/2024 09:25 ET Workstation ID: [id number] Transcribed By: Self Edit Transcribed Date: 04/15/2024 09:23 ET I have discussed the incidental/abnormal imaging and/or [...] Time None ? Medical Decision Making Medications amoxicillin-clavulanate (AUGMENTIN) 875-125 mg per tablet 1 tablet (1 tablet oral Given 04/15/24 1027) azithromycin (ZITHROMAX) tablet 500 mg (500 mg oral Given 04/15/24 1027) acetaminophen (TYLENOL) tablet 1,000 mg (1,000 mg oral Given 04/15/24 1027) sodium chloride 0.9 % bolus 1,000 mL (0 mL intravenous Stopped 04/15/24 1202) benzonatate (TESSALON) capsule 100 mg (100 mg oral Given 04/15/24 1106) ketorolac (TORADOL) injection 15 mg (15 mg intravenous Given 04/15/24 1106) ipratropium-albuteroL (DUONEB) 0.5-2.5 mg/3 mL nebulizer solution 3 mL (3 mL nebulization Given 04/15/24 1207) ipratropium-albuteroL (DUONEB) 0.5-2.5 mg/3 mL nebulizer solution 3 mL (3 mL nebulization Given 04/15/24 1207) sodium chloride 0.9 % bolus 1,000 mL (1,000 mL intravenous New Bag 04/15/24 1227) ED Course as of 04/15/241452 Mon Apr 15, 2024 1015 23-year-old female presented hospital today for cough, sore throat, nasal congestion, fever. I suspect patient likely has a URI with underlying pneumonia. Patient chest x- ray did show right upper lobe pneumonia. Will plan to give patient dose of azithromycin and Augmentin here for antibiotic coverage. Patient is noted be tachycardic. Will plan to give patient a bolus IV fluid. Tessalon Perles will be given for coughing, Tylenol be given for fever. [TC] 1453 Patient tachycardia has improved after IV fluid hydration. Blood pressure is improved. Patientwas able to ambulate without any issues at this time. Will plan to discharge patient. Antibiotic beprescribed for patient. Lactic acid is not elevated. No sign of leukocytosis. I do not think the patient is sepsis. [TC] 1453 No sign of hypoxia. [TC] ED Course User Index [TC] Darshana Charles, DO Clinical Impressions as of 04/15/241452 Pneumonia of right upper lobe due to infectious organism Influenza A Procedures Procedures Diagnosis 1. Pneumonia of right upper lobe due to infectious organism 2. Influenza A Disposition Discharge ED Prescriptions Medication Sig Dispense Start Date End Date Auth. Provider amoxicillin-clavulanate (AUGMENTIN) 875-125 mg per tablet Take 1 tablet by mouth every 12 (twelve) hours for 7 days. 14 tablet 04/15/2024 04/22/2024 Darshana Charles DO azithromycin (ZITHROMAX) 250 mg tablet Take 1 tablet (250 mg total) by mouth 1 (one) time each day for 4 days. 4 each 04/15/2024 04/19/2024 Darshana Charles DO Physician Attestation Darshana Charles, 04/15/24 1003 Darshana Charles, 04/15/24 1015 Darshana Charles, 04/15/24 1453 documented in this encounter Plan of Treatment Not on file documented as of this encounter Procedures Procedure Name Priority Date/Time Associated Diagnosis Comments CBC WITH AUTO DIFFERENTIAL STAT 04/15/2024 10:50 AM EST CBC AND DIFFERENTIAL STAT 04/15/2024 10:50 AM EST LACTATE STAT 04/15/2024 10:50 AM EST XR CHEST 2 VIEWS STAT 04/15/2024 8:55 AM EST [id number], RSV, FLU A AND B QUALITATIVE RT-PCR, INTERNAL LAB STAT 04/15/2024 8:43 AM EST documented in this encounter Results * (ABNORMAL) CBC auto differential (04/15/2024 10:50 AM EST) WBC 9.3 4.8 - 10.8 K/mcL LAB HEMETOLOGY METHOD 04/15/2024 12:08 PM [facility] RBC 4.30 3.80 - 4.80 M/mcL LAB HEMETOLOGY METHOD 04/15/2024 12:08 PM [facility] Hemoglobin 11.2(L) 11.5 - 16.0 g/dL LAB HEMETOLOGY METHOD 04/15/2024 12:08 PM [facility] Hematocrit 34.6(L) 35.0 - 47.0 % LAB HEMETOLOGY METHOD 04/15/2024 12:08 PM [facility] MCV 79.9 79.0 - 98.0 FL LAB HEMETOLOGY METHOD 04/15/2024 12:08 PM [facility] MCH 25.9(L) 27.0 - 32.0 pcg LAB HEMETOLOGY METHOD 04/15/2024 12:08 PM [facility] MCHC 32.4 32.0 - 37.0 g/dL LAB HEMETOLOGY METHOD 04/15/2024 12:08 PM [facility] RDW 13.8 11.0 - 15.0 % LAB HEMETOLOGY METHOD 04/15/2024 12:08 PM [facility] Platelets 243 130 - 400 K/mcL LAB HEMETOLOGY METHOD 04/15/2024 12:08 PM [facility] MPV 9.3 7.0 - 11.0 FL LAB HEMETOLOGY METHOD 04/15/2024 12:08 PM [facility] NRBC 0.0 <1.0 % LAB HEMETOLOGY METHOD 04/15/2024 12:08 PM [facility] NRBC Absolute 0.00 <0.10 K/mcL LAB HEMETOLOGY METHOD 04/15/2024 12:08 PM [facility] Neutrophils Relative 79.8 % LAB HEMETOLOGY METHOD 04/15/2024 12:08 PM [facility] Lymphocytes Relative 9.5 % LAB HEMETOLOGY METHOD 04/15/2024 12:08 PM [facility] Monocytes Relative 10.1 % LAB HEMETOLOGY METHOD 04/15/2024 12:08 PM [facility] Eosinophils Relative 0.0 % LAB HEMETOLOGY METHOD 04/15/2024 12:08 PM [facility] Basophils Relative 0.2 % LAB HEMETOLOGY METHOD 04/15/2024 12:08 PM [facility] Immature Granulocytes Relative 0.4 % LAB HEMETOLOGY METHOD 04/15/2024 12:08 PM EST [facility] Neutrophils Absolute 7.43(H) 1.50 - 7.00 K/mcL LAB HEMETOLOGY METHOD 04/15/2024 12:08 PM EST [facility] Lymphocytes Absolute 0.89(L) 1.00 - 5.00 K/mcL LAB HEMETOLOGY METHOD 04/15/2024 12:08 PM EST [facility] Monocytes Absolute 0.94 0.20 - 1.00 K/[facility] LAB HEMETOLOGY METHOD 04/15/2024 12:08 PM EST [facility] Eosinophils Absolute 0.00 0.00 - 0.50 K/[facility] LAB HEMETOLOGY METHOD 04/15/2024 12:08 PM [facility] Basophils Absolute 0.02 0.00 - 0.20 K/mcL LAB HEMETOLOGY METHOD 04/15/2024 12:08 PM [facility] Immature Granulocytes Absolute 0.04(H) 0.00 - 0.03 K/[facility] LAB HEMETOLOGY METHOD 04/15/2024 12:08 PM EST [facility] Blood Venous blood specimen / Unknown Venipuncture / Unknown 04/15/2024 10:50 AM EST 04/15/2024 11:50 AM EST us Darshana Charles DO LAB BLOOD ORDERABLES Audra l Result [facility] [address] [place] [address], * Lactate (04/15/2024 10:50 AM EST) Lactate 1.0 0.4 - 2.0 mmol/L LAB CHEMISTRY METHOD 04/15/2024 12:18 PM EST [facility] Blood Venous blood specimen / Unknown Venipuncture / Unknown 04/15/2024 10:50 AM EST 04/15/2024 11:50 AM EST us Darshana Charles DO LAB BLOOD ORDERABLES Audra l Result [facility] ([facility]) [facility] [address] [place] [address], [place] [phone] * XR Chest 2 Views (04/15/2024 8:55 [...] Signed Date: 04/15/2024 09:25 ET Workstation ID: [id number] Transcribed By: Self Edit Transcribed Date: 04/15/2024 [...] Signed Date: 04/15/2024 09:25 ET Workstation ID: [id number] Transcribed By: Self Edit Transcribed Date: 04/15/2024 09:23 ET Radha KLINE IMG XR PROCEDURES Final Result * (ABNORMAL) [id number], RSV, Influenza A and B qualitative RT-PCR (04/15/2024 8:43 AM EST) Influenza A PCR Detected(A) Not Detected LAB MICROBIOLOGY METHOD 04/15/2024 10:33 AM EST [facility] Comment:This patient is posi tive for influenza A. If the patient is admitted, please order the Respiratory Virus Panel PCR ([facility] ID: [id number]) so our lab can subtype the influenza A, per CDC recommendations. Influenza B PCR Not Detected Not Detected LAB MICROBIOLOGY METHOD 04/15/2024 10:33 AM EST [facility] RSV PCR Not Detected Not Detected LAB MICROBIOLOGY METHOD 04/15/2024 10:33 AM [facility] SARS COV-2 Not Detected Not Detected LAB MICROBIOLOGY METHOD 04/15/2024 10:33 AM [facility] Swab Both anterior nares / Unknown Non-blood Collection / Unknown 04/15/2024 8:43 AM EST 04/15/2024 9:33 AM EST [facility] - 04/15/2024 10:33 AM EST Disclaimer: ??Testing was performed using the miiCard GeneXpert Xpress SARS-CoV-2 _Flu_RSV PLUS PCR assay. [...] for Healthcare providers can be found at https://www.fda.gov/media/384004/download. ?? Fact sheet for Healthcare patients can be found at https://www.fda.gov/media/225734/download. Jb Wilkerson MD LAB MICROBIOLOGY - GENERA L ORDERABLES Final Result [facility] ([facility]) [facility] [address] [place] [address], documented in this encounter Visit Diagnoses Diagnosis Pneumonia of right upper lobe due to infectious organism- Primary Influenza A Influenza with other respiratory manifestations documented in this encounter Administered Medications Inactive Administered Medications - up to 3 most recent administrations Medication Order MAR Action Action Date Dose Rate Site acetaminophen (TYLENOL) tablet 1,000 mg 1,000 mg, oral, Once, On Mon04/15/24 at 1004, For 1 dose Given 04/15/2024 10:27 AM EST 1,000 mg amoxicillin-clavulanate (AUGMENTIN) 875-125 mg per tablet 1 tablet 1 tablet, oral, Once, On Mon04/15/24 at 1015, For 1 dose, Indication: Pneumonia, Community Acquired Given 04/15/2024 10:27 AM EST 1 tablet azithromycin (ZITHROMAX) tablet 500 mg 500 mg, oral, Once, On Mon04/15/24 at 1015, For 1 dose, Indication: Pneumonia, Community Acquired Given 04/15/2024 10:27 AM EST 500 mg benzonatate (TESSALON) capsule 100 mg 100 mg, oral, Once, On Mon04/15/24 at 1030, For 1 dose, Do not crush or chew. Given 04/15/2024 11:06 AM EST 100 mg ipratropium-albuteroL (DUONEB) 0.5-2.5 mg/3 mL nebulizer solution 3 mL 3 mL, nebulization, Once, On Mon04/15/24 at 1200, For 1 dose Given 04/15/2024 12:07 PM EST 3 mL ipratropium-albuteroL (DUONEB) 0.5-2.5 mg/3 mL nebulizer solution 3 mL 3 mL, nebulization, Once, On Mon04/15/24 at 1200, For 1 dose Given 04/15/2024 12:07 PM EST 3 mL ketorolac (TORADOL) injection 15 mg 15 mg, intravenous, Once, On Mon04/15/24 at 1103, For 1 dose Given 04/15/2024 11:06 AM EST 15 mg sodium chloride 0.9 % bolus 1,000 mL 1,000 mL, intravenous, at 2,000 mL/hr, Administer over 30 Minutes, Once, On Mon04/15/24 at 1004, For 1 dose New Bag 04/15/2024 10:27 AM EST 1,000 mL 2000 mL/hr sodium chloride 0.9 % bolus 1,000 mL 1,000 mL, intravenous, at 2,000 mL/hr, Administer over 30 Minutes, Once, On Mon04/15/24 at 1225, For 1 dose New Bag 04/15/2024 12:27 PM EST 1,000 mL 2000 mL/hr documented in this encounter Active and Recently Administered Medications Times are shown in EST. Scheduled Medication Order 04/13/2024 04/14/2024 04/15/2024 acetaminophen (TYLENOL) tablet 1,000 mg (COMPLETED) 1,000 mg, oral, Once, On Mon04/15/24 at 1004, For 1 dose 1027 (Given - Provid er: Justine Martínez RN) amoxicillin-clavulanate (AUGMENTIN) 875-125 mg per tablet 1 tablet (COMPLETED) 1 tablet, oral, Once, On Mon04/15/24 at 1015, For 1 dose, Indication: Pneumonia, Community Acquired 1027 (Given - Provid er: Justine Martínez RN) azithromycin (ZITHROMAX) tablet 500 mg (COMPLETED) 500 mg, oral, Once, On Mon04/15/24 at 1015, For 1 dose, Indication: Pneumonia, Community Acquired 1027 (Given - Provid er: Justine Martínez RN) benzonatate (TESSALON) capsule 100 mg (COMPLETED) 100 mg, oral, Once, On Mon04/15/24 at 1030, For 1 dose, Do not crush or chew. 1106 (Given - Provid er: Justine Martínez RN) ipratropium-albuteroL (DUONEB) 0.5-2.5 mg/3 mL nebulizer solution 3 mL (COMPLETED) 3 mL, nebulization, Once, On Mon04/15/24 at 1200, For 1 dose 1207 (Given - Provid er: Justine Martínez RN) ipratropium-albuteroL (DUONEB) 0.5-2.5 mg/3 mL nebulizer solution 3 mL (COMPLETED) 3 mL, nebulization, Once, On Mon04/15/24 at 1200, For 1 dose 1207 (Given - Provid er: Justine Martínez RN) ketorolac (TORADOL) injection 15 mg (COMPLETED) 15 mg, intravenous, Once, On Mon04/15/24 at 1103, For 1 dose 1106 (Given - Provid er: Justine Martínez RN) sodium chloride 0.9 % bolus 1,000 mL (COMPLETED) 1,000 mL, intravenous, at 2,000 mL/hr, Administer over 30 Minutes, Once, On Mon04/15/24 at 1004, For 1 dose 1027 (New Bag - Prov ider: Justine Martínez RN)1202 (Stopped - Provider: Justine Martínez RN) sodium chloride 0.9 % bolus 1,000 mL (COMPLETED) 1,000 mL, intravenous, at 2,000 mL/hr, Administer over 30 Minutes, Once, On Mon04/15/24 at 1225, For 1 dose 1227 (New Bag - Prov ider: Justine Martínez RN)1515 (Stopped - Provider: Justine Martínez RN) documented in this encounter Additional Health Concerns Infection Onset Date Last Indicated Resolved Time Respiratory Rule-Out 04/15/2024 04/15/2024 025 10:33 AM EST COVID-19 Rule-Out 04/15/2024 04/15/2024 04/15/2024 10:33 AM EST Influenza Comment:Infection isolation completed 04/15/2024 04/15/2024 04/24/2024 1:[address] documented as of this encounter Care Teams Hand Trucker Relationship Specialty Start Date End Date Cathy Cantrell MD [address] [facility] [place] PCP - General Internal Medicine 04/15/24 documented as of this encounter
--- OUTSIDE RECORDS SUMMARY | 2024-04-27 16:14 | XMS_ITS | Encounter Summary ---
Author Organization [facility] Address [address] [place] [address] Care Team Providers Care [employer] Name Role Phone Cathy Cantrell MD Primary Care Provider [phone] Reason for Visit * Reason Comments Allergic Reaction Encounter Details Date Type Department Care Team (Late st Contact Info) Description 04/15/2024 10:31 PM EST - 04/16/2024 6:50 AM EST Emergency [facility] Emergency [address] [place] [id number] Allergic reaction to drug, initial encounter (Primary Dx); Influenza; Pneumonia due to infectious organism, unspecified laterality, unspecified part of lung Discharge Disposition: Home or Self Care Social [...] Sign Reading Time Taken Comments Blood Pressure 108/79 04/16/2024 5:21 AM EST Pulse 110 04/16/2024 5:21 AM EST Temperature 37.1 ??C (98.8 ??F) 04/16/2024 1:08 AM ES T Respiratory Rate 22 04/16/2024 5:21 AM EST Oxygen Saturation 97% 04/16/2024 5:21 AM EST Inhaled Oxygen Concentration - - Weight 72.6 kg (160 lb) 04/15/2024 10:47 PM EST Height 152.4 cm (5') 04/15/2024 10:47 PM EST Body Mass Index 31.25 04/15/2024 10:47 PM EST documented in this encounter Discharge Instructions * Discharge Instructions* ELIUD Magallanes - 04/16/2024 5:22 AM EST You are found to have a possible allergic reaction to the antibiotics you were given earlier in theday. Please discontinue these medications, sent a prescription for doxycycline as an antibiotic foryour pneumonia instead. Benadryl as needed for itching. Famotidine once daily to help mitigate any further allergic reaction. Prednisone additionally for allergic reaction as well as to help your breathing over the next few days with your flu/pneumonia. Albuterol inhaler as needed for wheezing/shortness of breath. Guaifenesin/Robitussin for cough. Please use the incentive spirometer as instructed to help exercise your lungs while you are feelingunwell. Plenty of rest and drink plenty of fluids. These follow-up with your primary care provider otherwise call 9 /return to the emergency department for urgent reevaluation should you experience any new or worsening symptoms of concern. * Attachments The following attachments cannot be sent through Care Everywhere. * Allergic Reaction (Iraqi) * Influenza (Iraqi) * Pneumonia (Iraqi) documented in this encounter Medications at Time [...] 04/16/2024 5 documented as of this encounter Ordered Prescriptions Prescription Sig Dispense Quantity Refills Last Filled Start Date End Date albuterol HFA (PROAIR HFA ; PROVENTIL HFA ; VENTOLIN HFA) 90 mcg/actuation inhalerIndications :Influenza Inhale 2 puffs by mouth every 4 [...] 4 days. 8 each 04/16/2024 5 documented in this encounter Discharge Disposition Disposition Code Departure Means Destination Comment s Home or Self Care documented in this encounter Progress Notes * Margaret Freedman RN - 04/15/2024 10:31 PM EST Per EMS, patient seen at [facility] ED earlier today dx with flu and was given augmentin and azithromycin and now c/o whole body hives x1 hour. Per EMS lung sounds clear, no respiratory distress. documented in this encounter Plan of Treatment Not on file documented as of this encounter Procedures Procedure Name Priority Date/Time Associated Diagnosis Comments ECG ANNOTATED 04/17/2024 ECG 12-LEAD Routine 04/16/2024 12:26 AM EST documented in this encounter Results * ECG-Annotated (04/17/2024) us Provider Onbase MD ECG ORDERABLES Final Result * ECG 12 lead (04/16/2024 12:26 AM EST) Ventricular Rate ECG 90 BPM GEMUSE Atrial Rate 90 BPM GEMUSE P-R Interval 176 ms GEMUSE QRS Duration 70 ms GEMUSE Q-T Interval 334 ms GEMUSE QTc 408 ms GEMUSE P Wave Bard 28 degrees GEMUSE R Bard 85 degrees GEMUSE T Bard 14 degrees GEMUSE ECG Interpretation Normal sinus rhythm Nonspecific T wave abnormality vertical axis Abnormal ECG When compared with ECG of 07-APR-2023 10:28, No significant change was found Confirmed by Di JOHNSON JOHN ([id number]) on 04/16/2024 7:56:59 AM GEMUSE 04/16/2024 12:2 6 AM EST 04/16/2024 7:56 AM EST Dianna KLINE ECG ORDERABLES Final Result GEMUSE documented in this encounter Visit Diagnoses Diagnosis Allergic reaction to drug, initial encounter- Primary Influenza Influenza with other respiratory manifestations Pneumonia due to infectious organism, unspecified laterality, unspecified part of lung documented in this encounter Administered Medications Inactive Administered Medications - up to 3 most recent administrations Medication Order MAR Action Action Date Dose Rate Site albuterol 2.5 mg /3 mL (0.083 %) nebulizer solution 2.5 mg 2.5 mg, nebulization, Once, On Mon04/16/24 at 0232, For 1 dose Given 04/16/2024 2:52 AM EST 2.5 mg diphenhydrAMINE (BENADRYL) capsule 25 mg 25 mg, oral, Once, On Mon04/16/24 at 0505, For 1 dose Given 04/16/2024 5:11 AM EST 25 mg doxycycline (MONODOX) capsule 100 mg 100 mg, oral, Once, On Mon04/16/24 at 0238, For 1 dose, Take with at least 8 ounces (large glass) of water, do not lie down for 30 minutes after. Administer 2 hours before or after multivitamins, antacids, or other products containing polyvalent cations (i.e., calcium, iron, magnesium, selenium, zinc)., Indication: Pneumonia, Community Acquired Given 04/16/2024 2:53 AM EST 100 mg famotidine (PEPCID) tablet 40 mg 40 mg, oral, Once, On Mon04/16/24 at 0003, For 1 dose Given 04/16/2024 12:23 AM EST 40 mg guaiFENesin (ROBITUSSIN) 100 mg/5 mL liquid 100 mg 100 mg, oral, Once, On Mon04/16/24 at 0335, For 1 dose Given 04/16/2024 4:08 AM EST 100 mg ipratropium-albuteroL (DUONEB) 0.5-2.5 mg/3 mL nebulizer solution 3 mL 3 mL, nebulization, Once, On Mon04/16/24 at 0232, For 1 dose Given 04/16/2024 2:53 AM EST 3 mL predniSONE (DELTASONE) tablet 60 mg 60 mg, oral, Once, On Mon04/16/24 at 0003, For 1 dose Given 04/16/2024 12:23 AM EST 60 mg documented in this encounter Discontinued Medications Medication Sig Discontinue Reason Start Date End Da te amoxicillin-clavulanate (AUGMENTIN) 875-125 mg per tablet Take 1 tablet by mouth every 12 (twelve) hours for 7 days. Allergic response 04/15/2024 04/16/2024 azithromycin (ZITHROMAX) 250 mg tablet Take 1 tablet (250 mg total) by mouth 1 (one) time each day for 4 days. Allergic response 04/15/2024 04/16/2024 documented as of this encounter Active and Recently Administered Medications Times are shown in EST. Scheduled Medication Order 04/14/2024 04/15/2024 04/16/2024 albuterol 2.5 mg /3 mL (0.083 %) nebulizer solution 2.5 mg (COMPLETED) 2.5 mg, nebulization, Once, On Mon04/16/24 at 0232, For 1 dose 0252 (Given - Provid er: Margaret Freedman RN) diphenhydrAMINE (BENADRYL) capsule 25 mg (COMPLETED) 25 mg, oral, Once, On Mon04/16/24 at 0505, For 1 dose 0511 (Given - Provid er: Moisés Padron RN) doxycycline (MONODOX) capsule 100 mg (COMPLETED) 100 mg, oral, Once, On Mon04/16/24 at 0238, For 1 dose, Take with at least 8 ounces (large glass) of water, do not lie down for 30 minutes after. Administer 2 hours before or after multivitamins, antacids, or other products containing polyvalent cations (i.e., calcium, iron, magnesium, selenium, zinc)., Indication: Pneumonia, Community Acquired 0253 (Given - Provid er: Margaret Freedman RN) famotidine (PEPCID) tablet 40 mg (COMPLETED) 40 mg, oral, Once, On Mon04/16/24 at 0003, For 1 dose 0023 (Given - Provid er: Margaret Freedman RN) guaiFENesin (ROBITUSSIN) 100 mg/5 mL liquid 100 mg (COMPLETED) 100 mg, oral, Once, On Mon04/16/24 at 0335, For 1 dose 0408 (Given - Provid er: Moisés Padron RN) ipratropium-albuteroL (DUONEB) 0.5-2.5 mg/3 mL nebulizer solution 3 mL (COMPLETED) 3 mL, nebulization, Once, On Mon04/16/24 at 0232, For 1 dose 0253 (Given - Provid er: Margaret Freedman RN) predniSONE (DELTASONE) tablet 60 mg (COMPLETED) 60 mg, oral, Once, On Mon04/16/24 at 0003, For 1 dose 0023 (Given - Provid er: Margaret Freedman RN) documented in this encounter Orders Medications Ordered That Marcelino ht Not Have Been Administered Count Last Ordered Date First Ordered Date famotidine (PF) (PEPCID) injection 40 mg 1 04/15/2024 methylPREDNISolone sodium pulido cc (SOLU-Medrol) injection 125 mg 1 04/15/2024 documented in this encounter Additional Health Concerns Infection Onset Date Last Indicated Resolved Time Influenza Comment:Infection isolation completed 04/15/2024 04/15/2024 04/24/2024 1:[address] documented as of this encounter Care Teams Toe [employer] Relationship Specialty Start Date End Date Cathy Cantrell MD [facility] ID PCP - General Internal Medicine 04/15/24 documented as of this encounter
[2024-04-27 16:20] LABS: Alanine Aminotransferase 52 U/L (0-31); Albumin Level 4.4 g/dL (3.5-5.0); Anion Gap 17 (12-20); Aspartate Amino Transferase 34 U/L (5-31); Bilirubin Total 0.9 mg/dL (0.0-1.0); Blood Urea Nitrogen 9 mg/dL (9-16); Calcium 9.6 mg/dL (8.4-10.2); Carbon Dioxide 21 mmol/L (22-29); Chloride 106 mmol/L (96-108); Creatinine Clr Calc Pharmacy 133.5; Estimated Glomerular Filt Rate > 60; Glucose Random 98 mg/dL (60-115); Magnesium 2.5 mg/dL (1.6-2.6); Potassium 3.6 mmol/L (3.3-5.1); Sodium 140 mmol/L (135-145); Total Protein 8.3 g/dL (6.5-8.0); Troponin-I High Sensitivity < 2.7 ng/L (<3.5-17.0)
[2024-04-27 16:34] LABS: HCG Quantitative < 2 mIU/mL; TSH reflex Free T4 1.22 uIU/mL (0.32-4.0)
[2024-04-27 16:44] LABS: Alkaline Phosphatase 88 U/L (39-117)
[2024-04-27 16:58] LABS: Influenza A PCR NEGATIVE (Negative); Influenza B PCR NEGATIVE (Negative); Resp Syncy Virus RNA Qual PCR NEGATIVE (Negative); SARS COV2 PCR INHOUSE NEGATIVE (Negative)
[2024-04-27 18:31] VITALS: BP 142/93; PULSE 101; RESP 18; TEMP 36.9; O2SAT 99
[2024-04-27 20:23] VITALS: BP 149/93; PULSE 104; RESP 16; TEMP 37.1; O2SAT 99
--- NOTE | 2024-04-27 20:26 | PC.NURSE ---
pt dc, sent back to facility via ems
[2024-04-27 20:28] VITALS: BP 149/93; PULSE 104; RESP 16; TEMP 37.1; O2SAT 99
== END 2024-04-27 20:29 ==
PROVIDERS: Registered Nurse Emergency; Emergency Provider Emergency Medicine; PCP Pediatrics
DX: M94.0 Chondrocostal junction syndrome [Tietze] (principal); R00.0 Tachycardia, unspecified; R05.9 Cough, unspecified; Z03.818 Encounter for observation for suspected exposure to other biological agents ruled out
CPT/HCPCS: 0241U; 36415; 71046; 80053; 82550; 83735; 84443; 84484; 84702; 85025; 93005; 96360; 96361; 99285

== ENCOUNTER → 2024-04-27 15:29 | Outpatient (BNV) | payer OTHER, SELFPAY | PROVIDERS: Emergency Provider Emergency Medicine; PCP Pediatrics; Visit Provider Internal Medicine Cardiovascular Disease | DX: R07.9 Chest pain, unspecified (principal); R00.0 Tachycardia, unspecified; R94.31 Abnormal electrocardiogram [ECG] [EKG] | CPT/HCPCS: 93010 ==

== ENCOUNTER → 2024-04-27 15:32 | Outpatient (BNV) | payer OTHER, SELFPAY | PROVIDERS: Emergency Provider Emergency Medicine; PCP Pediatrics; Visit Provider Radiology Diagnostic Radiology | DX: R07.9 Chest pain, unspecified (principal) | CPT/HCPCS: 71046 ==